=== PATIENT | female | born 1945 | race Caucasian/White ===

== ENCOUNTER 2020-06-09 13:47 | Inpatient (IN) ==
--- NOTE | 2020-06-09 14:32 | History & Physical Bridge Note ---
Date of Service June 09, 2020 History & Physical Bridge Note I have examined the patient, reviewed the History & Physical and in the interval since the performance of the History & Physical I have noted the following changes of clinical significance: no changes noted
--- NOTE | 2020-06-09 14:33 | Pre Anesthesia Assessment ---
Date of Service June 09, 2020 Pre Sedation Assessment Vital Signs Temp Pulse Resp BP Pulse Ox 06/09/20 13:59 36.8 C 88 18 203/85 H 98 Cardiovascular + regular rhythm Respiratory normal respiratory effort, lungs clear to auscultation Pre-Sedation Airway Assessment Smoking Status: Never smoker Hx Sleep Apnea: No Short, Thick Neck: No Thyromental Distance: > or= 3.5 Finger Breadths Oral Cavity: + WNL Mallampati Class: I ASA: ASA1 NPO Status Date of Last Intake of Fluids: 06/08/20 Date of Last Intake of Solid Food: 06/08/20 Procedure Planning Contraindications for Sedation: none Current Medications Reviewed: Yes Notes The planned sedation has been discussed with the patient. Informed Consent was obtained. I have identified the patient, determined the appropriateness of sedation and have assessed the patient immediately prior to the procedure. All medicine(s) and interventions are by my order.
[2020-06-09] MEDS ORDERED: LIDOCAINE HCL 1% 20 ML VIAL ONE (14:34)
[2020-06-09] MEDS ORDERED: BACITRACIN INJ 50,000 UNIT VIAL ONE (14:34)
[2020-06-09] MEDS ORDERED: BUPIVACAINE 0.25% 30 ML VIAL ONE (14:34)
[2020-06-09] MEDS ORDERED: fentaNYL citrate 100 MCG/2 ML VIAL ONE ×2 (14:35→16:00)
[2020-06-09] MEDS ORDERED: CEFAZOLIN 250 MG/ML 1 GM VIAL ONE (14:35)
[2020-06-09] MEDS ORDERED: MIDAZOLAM HCL 5 MG/ML 1 ML VIAL ONE (14:35)
--- NOTE | 2020-06-09 16:56 | Post Anesthesia Assessment ---
Date of Service June 09, 2020 Post Sedation Assessment Vital Signs Temp Pulse Resp BP Pulse Ox 06/09/20 13:59 36.8 C 88 18 203/85 H 98 Recovery Score Activity: Moves 4 extremities Respiration: Deep Breath/Cough Circulation: +/-20% PreAnes Value Consciousness: Fully Awake Oxygen Saturation: > 92% On Room Air Discharge Sedation Level of Care: Fast Track Phase II Post Sedation Plan On clinical assessment, the patient appears to have tolerated the sedation without complications. Patient is recovering as anticipated. Patient will continue to be monitored by nursing and may be discharged when sedation discharge criteria are met per below protocol. Upon Completions of procedure up to 15 minutes continue every 5 minute vital signs and the P.A.R. score; then discharge to a Phase I or Fast Track to Phase I I per the following guidelines: * Discharge Patient to appropriate Phase II area if PAR is 8 or greater or return to pre- procedure baseline. The post - procedure orders will be as directed. * If PAR score is less than 8 or not return to pre-procedure baseline then patient will follow Phase I monitoring till PAR is reached for Phase II. The Phase I may be done in procedure room or may call to secure a Phase I area. * If naloxone or flumazenil are used for reversal, hold in Phase I for continued monitoring from when last reversal dose was given for a minimum of 60 minutes or longer pending the nurse and/or physician discretion of patient condition before discharge to Phase II. Please call the Sedation Physician to re-evaluate and complete post-note for discharge to Phase II area. Do NOT discharge from procedure sedation or Phase 1 until post- sedation evaluation note is complete by procedure /sedation MD Sedation Discharge Instructions to be given to the patient at discharge to home.
[2020-06-09] MEDS ORDERED: NURSING DECISION MEDICATION ONE (16:57)
--- NOTE | 2020-06-09 16:57 | Operative Report ---
Post Operative Report Pre & Post Diagnosis tbs Operation Date: 06/09/20 15:00 <No data on this case meets the specified criteria> I identified the patient and participated in the time-out.: Yes Procedure Operation Date: 06/09/20 15:00 Actual Procedures s Bundle of his Recording - Nimco Diamond DO p Pacer with A/V Leads (Dual) - Nimco Diamond DO s Venogram, Unilateral - Nimco Diamond DO Surgeon Nimco Diamond, Electrical Estimator none Estimated Blood Loss 20 Findings Consistent with Post-Op Diagnosis Specimens none Description of Procedure see official report I attest to the content of the Intraoperative Record and any orders documented therein. Any exceptions are noted below.
[2020-06-09] MEDS ORDERED: OFLOXACIN OPR SCH (17:00)
--- NOTE | 2020-06-09 17:06 | Discharge Summary ---
Date of Service June 10, 2020 Admission HPI Per Admitting Provider pt admitted for ppm due TBS Admission Exam Per Admitting Provider aaox3, NAD NC/AT, EOMI Supple No JVD Nrl S1/S2, No murmur CTA b/l no w/r/r soft nt/nd no LE edema b/l skin intact no focal deficits Principal Diagnosis TBS s/p ppm Discharge Exam aaox3, NAD NC/AT, EOMI Supple No JVD Nrl S1/S2, No murmur CTA b/l no w/r/r soft nt/nd no LE edema b/l skin intact no focal deficits left pectoral incision intact, no hematoma mild ecchymosis Discharge Data Allergies Allergy/AdvReac Type Severity Reaction Status Date / Time acetaminophen Allergy Unknown WEAKNESS Verified 06/09/20 14:08 Vjygqat-Ojw-Tam Reductase Allergy Unknown MUSCLE Verified 06/09/20 14:08 Inhibitor ACHES terfenadine AdvReac Unknown HEART Verified 06/09/20 14:08 PALPITATIONS risedronate sodium AdvReac Muscle Pain Verified 06/09/20 14:08 Procedures Performed Operation Date: 06/09/20 15:00 Actual Procedures s Bundle of his Recording - Nimco Diamond DO p Pacer with A/V Leads (Dual) - Nimco Diamond DO s Venogram, Unilateral - Nimco Diamond DO Ordered Studies ECG: SR CXR: no PTX; leads in position pacemaker interrogation:Normal function and stable lead testing since implant 06/09/20 07:15 EP Lab Images for PACS ONCE Hospital Course (1) Tachy-linwood syndrome: Total Time Total Time Spent Total Time Spent (In Minutes): 35 Total Time Includes: Examination of the Patient, Discharge Planning, Medication Reconciliation and Other Discharge Plan Discharge Items Patient Disposition: Home - Self-Care Reason For Visit: Syncope; Sinus Bradycardia Discharge Diagnosis: TBS s/p ppm Condition on Discharge: Good Activity: As commented below Activity Comment: do not lift the left elbow over the left shoulder for 1 month Lifting: No more than 10 pounds Lifting Comment: do not lift more than 10 pounds with the left arm for 2 weeks Bathing: Keep incision dry Bathing Comment: keep dressing on and dry until wound check next week Sexual Activity: After two weeks Non-emergency contact: Manager Of Business Operations Call non-emergency contact if: you have any medication questions Follow-up/Referrals: Constantin Sánchez PA-C [Primary Care Provider] - Diet: Heart Healthy Addtl Attending Provider Instructions: Device and wound check as scheduled next week in [place] cardiology Try to wear the surgical bra or sports bra for a few weeks to help with the healing process Pending Studies at Discharge: No Stand-Alone Forms: My [facility] Medications and DC Order Prescriptions: New metoprolol succinate 50 mg Tablet Extended Release 24 Hr 50 mg PO QAM 30 Days Qty: 30 RF: 0 Continued ASCORBIC ACID (VITAMIN C) 1,000 MG tablet 1 tab PO QAM Qty: 0 RF: 0 ASPIRIN (ASPIRIN CHEWABLE) 81 MG CHEWABLE TAB 81 mg PO QAM Qty: 0 RF: 0 ATORVASTATIN (LIPITOR) 40 MG tablet 40 mg PO QPM Qty: 0 RF: 0 B-COMPLEX VITAMINS (VITAMIN B COMPLEX) 1 TAB tablet 1 tab PO QAM Qty: 0 RF: 0 BIOTIN 1 MG capsule 1 tab PO BID Qty: 0 RF: 0 [id number] (CALCIUM/MAGNESIUM/ZINC) 1 TAB tablet 1 tab PO QAM Qty: 0 RF: 0 CHOLECALCIFEROL (VITAMIN D3) 1,000 UNIT tablet 1 tab PO QAM 90 Days Qty: 90 RF: 3 COENZYME Q10 (UBIDECARENONE) (COQ-10) 100 MG capsule 1 cap PO HS Qty: 0 RF: 0 CYANOCOBALAMIN (VITAMIN B12) 1,000 MCG tablet 1 tab PO QAM Qty: 0 RF: 0 Calcium/Vitamin D (Os-Feliciano 500 Plus D) tablet 1 tab PO QAM Qty: 0 RF: 0 Clopidogrel (Plavix) 75 MG tablet 75 mg PO QAM Qty: 0 RF: 0 FERROUS SULFATE 325 MG tablet 1 tab PO QAM Qty: 0 RF: 0 Insulin Glargine (Lantus) VIAL 40 unit SC QAM Qty: 0 RF: 0 LUTEIN-ZEAXANTHIN (LUTEIN) 1 CAP capsule 1 cap PO QAM Qty: 0 RF: 0 METFORMIN HCL (GLUCOPHAGE EXT REL) 1,000 MG tablet 1,000 mg PO BID Qty: 0 RF: 0 MULTIPLE VITAMINS W/ MINERALS (CENTRUM SILVER ADULT 50+) 1 TAB tablet 1 tab PO QAM Qty: 0 RF: 0 NATEGLINIDE 120 MG tablet 1 tab PO TID Qty: 0 RF: 0 OMEGA-3 FATTY ACIDS (OMEGA 3) 1 CAP capsule 1 cap PO QAM Qty: 0 RF: 0 Tocopheryl Acet,Dl-Alpha (Vitamin E) 400 INTER.UNIT capsule 400 inter.unit PO QAM Qty: 0 RF: 0 Prednisolone Acetate 1% Oph (Pred Forte 1% Oph) suspension 1 drp OPR Q OTHER DAY Qty: 0 RF: 0 OFLOXACIN (OPH) (OCUFLOX OPH SOLN) 0.3 % MARC 1 drp OPR QID 7 Days Qty: 5 RF: 0 Changed LISINOPRIL (PRINIVIL) 20 MG tablet 20 mg PO HS Qty: 0 RF: 0 Discharge Orders: Discharge Order (Routine); Ordered 06/10/20 Ordered By: Nimco Diamond Admission Data Admit Date/Time: 06/09/20 15:12 Attending Provider: Nimco Diamond Admit Provider: Nimco Diamond Primary Care Provider: Constantin Sánchez Other Providers: Lei Gray ; Maninder Orta ; Binh Nickerson ; Daniel Jacobs ; Alfred Sosa ; Cullen Kam ; Amirah Guevara ; Darek Miles
[2020-06-09] MEDS ORDERED: GLUCAGON FOR INJ 1 MG VIAL IM PRN (17:15)
[2020-06-09] MEDS ORDERED: GLUCOSE 40% GEL 15 GM TUBE PO PRN (17:15)
[2020-06-09] MEDS ORDERED: GLUCOSE 10 TABS/TUBE PO PRN (17:15)
[2020-06-09] MEDS ORDERED: DEXTROSE 50% 50 ML SYRINGE IV PRN (17:15)
[2020-06-09] MEDS ORDERED: CARBOHYDRATES FOR HYPOGLYCEMIA PO PRN (17:15)
[2020-06-09] MEDS ORDERED: PHARMACY GLYCEMIC MGMT CONSULT PRN (17:21)
[2020-06-09] MEDS ORDERED: METOPROLOL SUCC 50MG EXT REL TAB PO ONE (17:45)
[2020-06-09] MEDS: INSULIN ASPART 100 UNITS/ML 3 ML PEN SC SCH ×2 (17:59→22:03)
[2020-06-09] MEDS ORDERED: METFORMIN HCL ER 500 MG TABCR PO SCH (21:00)
[2020-06-09] MEDS ORDERED: NON-FORMULARY MEDICATION (Biotin 1 TAB) PO SCH (21:00)
[2020-06-09] MEDS ORDERED: NON-FORMULARY MEDICATION (Coenzyme Q10 (Ubidecarenone) (Coq-10) 1 CAP) PO SCH (21:00)
[2020-06-09] MEDS ORDERED: NATEGLINIDE PO SCH (21:00)
[2020-06-09] MEDS: lisinopriL 20 MG TAB PO SCH (22:02)
[2020-06-09] MEDS: ATORVASTATIN 40 MG TAB PO SCH (22:02)
[2020-06-09] MEDS: ACETAMINOPHEN 325 MG TAB PO PRN (22:29)
[2020-06-10] MEDS: prednisoLONE acetate 1% OP SUSP 5 ML BTL OP SCH (08:04)
[2020-06-10] MEDS: CEROVITE ADV FORMULA TAB PO SCH (08:05)
[2020-06-10] MEDS: CHOLECALCIFEROL 1,000 UNITS 25 MCG TAB PO SCH (08:05)
[2020-06-10] MEDS: CALCIUM 600MG + VIT D 400 IU TAB PO SCH (08:05)
[2020-06-10] MEDS: OMEGA-3 (PURIFIED FISH OIL) 1 GM CAP PO SCH (08:05)
[2020-06-10] MEDS: CLOPIDOGREL BISULFATE 75 MG TAB PO SCH (08:05)
[2020-06-10] MEDS: TOCOPHERYL, DL-ALPHA 400 UNITS CAP PO SCH (08:05)
[2020-06-10] MEDS: VITAMIN B COMPLEX TAB PO SCH (08:05)
[2020-06-10] MEDS: ASCORBIC ACID 500 MG TAB PO SCH (08:05)
[2020-06-10] MEDS: ASPIRIN 81 MG ECTAB PO SCH (08:05)
--- NOTE | 2020-06-10 08:05 | XRay Report ---
XR chest 2V PA/lateral HISTORY: 74 years-old Female post left bundle ppm left subclavian pacer COMPARISON: None TECHNIQUE: PA and lateral views of the chest FINDINGS: Status post placement of a left subclavian dual lead pacer. Left apical pneumothorax with pleural sep aration of 3.8 cm at the apex. Cardiac silhouette is normal in size. Calcified plaque of the thoracic aorta. Mild right hemidiaphragmatic elevation. Mild left lung atelectasis. Degenerative changes of t he shoulders and spine. IMPRESSION: Small to moderate left apical pneumothorax status post placement of a dual lead left subc lavian pacer. ACT 112: Negative or not required by law. The above report was generated using voice recognition software. It may contain grammatical, syntax o r spelling errors. Electronically signed by: Rhett Sorto M.D. 06/10/2020 8:03 AM
[2020-06-10] MEDS: FERROUS SULFATE 325 MG TAB PO SCH (08:06)
[2020-06-10] MEDS: INSULIN ASPART 100 UNITS/ML 3 ML PEN SC SCH ×4 (08:06→22:09)
[2020-06-10] MEDS: METOPROLOL SUCC 50MG EXT REL TAB PO SCH (08:06)
[2020-06-10] MEDS: CYANOCOBALAMIN 500 MCG TABLET (VITAMIN B-12) PO SCH (08:06)
[2020-06-10] MEDS: lisinopriL 20 MG TAB PO SCH ×2 (08:50→22:08)
[2020-06-10] MEDS ORDERED: INSULIN GLARGINE SOLOSTAR 100 UNITS/ML 3 ML PEN SC SCH (09:00)
[2020-06-10] MEDS ORDERED: VITAMIN D PO SCH (09:00)
[2020-06-10] MEDS ORDERED: CALCIUM PO SCH (09:00)
[2020-06-10] MEDS ORDERED: NON-FORMULARY MEDICATION (Lutein-Zeaxanthin (Lutein) 1 CAP) PO SCH (09:00)
[2020-06-10] MEDS: ACETAMINOPHEN 325 MG TAB PO PRN (09:01)
--- NOTE | 2020-06-10 10:31 | Pulmonary Consultation ---
Date of Consultation June 10, 2020 Assessment & Plan (1) Pneumothorax, iatrogenic: Impression: 74-year-old female with left-sided pneumothorax status post pacemaker implantation. She is hemodynamically stable and doing well. Recommendations: 1. We will plan on trying to aspirate the pneumothorax with placement of a small 8 Tamazight chest tube. Will check chest x-ray after the catheter is placed to ensure reexpansion of the lung. If she does well, will clamp the tube and check chest x-ray 4 hours after clamping the tube. If no evidence of pneumothorax, the tube can likely be withdrawn and the patient dismissed from the hospital. 2. Recommend keeping the patient on oxygen to try and denitrogenate the pneumothorax and assist with reabsorption of the pleural air. 4 to 6 L nasal cannula should be adequate. 3. 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 She states she has a trip scheduled to fly to [place] in about 4 weeks. That would be the lower limits of acceptable given her pneumothorax. The above recommendations and plan were explained to the patient in detail. She expressed understanding and is in agreement with the plan as outlined History of Present Illness Attending Physician: Nimco Diamond, DO History of Present Illness Asked by cardiology to assist in management this patient with iatrogenic pneumothorax status post pacemaker placement. History is obtained from discussion with the patient as well as review the electronic medical record. Patient is a 74-year-old female who was admitted for elective placement of pacemaker due to tachybradycardia syndrome. She underwent the procedure and was scheduled to be discharged today. A follow-up chest x-ray was performed which revealed a small to moderate sized left-sided pleural effusion which prompted pulmonary consultation. The patient is asymptomatic with the exception of some minor left-sided chest discomfort. She is not coughing or experiencing any shortness of breath. Her oxygen saturations and vital signs remained stable. She is on Plavix and aspirin which she took today but no other anticoagulants. Allergies Allergy/AdvReac Type Severity Reaction Status Date / Time acetaminophen Allergy Unknown WEAKNESS Verified 06/09/20 14:08 Rfzbeeh-Gfb-Xat Reductase Allergy Unknown MUSCLE Verified 06/09/20 14:08 Inhibitor ACHES terfenadine AdvReac Unknown HEART Verified 06/09/20 14:08 PALPITATIONS risedronate sodium AdvReac Muscle Pain Verified 06/09/20 14:08 Home Medications Home Medications Medication Instructions Recorded Confirmed Type ASCORBIC ACID (VITAMIN C) 1 tab PO QAM #0 01/17/16 06/09/20 History ASPIRIN (ASPIRIN CHEWABLE) 81 mg PO QAM #0 01/17/16 06/09/20 History ATORVASTATIN (LIPITOR) 40 mg PO QPM #0 tab 01/17/16 06/09/20 History B-COMPLEX VITAMINS (VITAMIN B 1 tab PO QAM #0 01/17/16 06/09/20 History COMPLEX) BIOTIN 1 tab PO BID #0 01/17/16 06/09/20 History DYZTYPI-[id number] 1 tab PO QAM #0 01/17/16 06/09/20 History (CALCIUM/MAGNESIUM/ZINC) CHOLECALCIFEROL (VITAMIN D3) 1 tab PO QAM 90 Days #90 tab 01/17/16 06/09/20 History COENZYME Q10 (UBIDECARENONE) 1 cap PO HS #0 01/17/16 06/09/20 History (COQ-10) CYANOCOBALAMIN (VITAMIN B12) 1 tab PO QAM #0 01/17/16 06/09/20 History Calcium/Vitamin D (Os-Feliciano 500 Plus 1 tab PO QAM #0 tab 01/17/16 06/09/20 History D) Clopidogrel (Plavix) 75 mg PO QAM #0 tab 01/17/16 06/09/20 History FERROUS SULFATE 1 tab PO QAM #0 01/17/16 06/09/20 History Insulin Glargine (Lantus) 40 unit SC QAM #0 vial 01/17/16 06/09/20 History LISINOPRIL (PRINIVIL) 20 mg PO BID #0 tab 01/17/16 06/09/20 History LUTEIN-ZEAXANTHIN (LUTEIN) 1 cap PO QAM #0 01/17/16 06/09/20 History METFORMIN HCL (GLUCOPHAGE EXT REL) 1,000 mg PO BID #0 tab 01/17/16 06/09/20 History MULTIPLE VITAMINS W/ MINERALS 1 tab PO QAM #0 01/17/16 06/09/20 History (CENTRUM SILVER ADULT 50+) NATEGLINIDE 1 tab PO TID #0 01/17/16 06/09/20 History OMEGA-3 FATTY ACIDS (OMEGA 3) 1 cap PO QAM #0 01/17/16 06/09/20 History Tocopheryl Acet,Dl-Alpha (Vitamin 400 inter.unit PO QAM #0 cap 01/17/16 06/09/20 History E) OFLOXACIN (OPH) (OCUFLOX OPH SOLN) 1 drp OPR QID 7 Days #5 ml 02/02/16 06/09/20 History Prednisolone Acetate 1% Oph (Pred 1 drp OPR Q OTHER DAY #0 02/02/16 06/09/20 History Forte 1% Oph) metoprolol succinate 50 mg PO QAM 30 Days #30 tab 06/09/20 Rx Patient History Social History Smoking Status: Never smoker Hx Alcohol Use: No Hx Substance Use: No Preferred Language: Hong Konger Beliefs That Will Affect Care: None Current Living Situation: Alone Other Information That Helps Us Care for You: No Feels Safe at Home: Yes Safety Concerns: Feels Safe At This Time Review of Systems Review of Systems: All systems reviewed & are unremarkable except as noted in HPI & below Physical Exam Constitutional: WD/WN, vitals as above Neck: trachea midline, no thyromegaly Respiratory: normal respiratory effort, lungs clear to auscultation Cardiovascular: RRR, no murmur, no edema Chest (Breasts): Additional Comments: Pacemaker site dressed on the left chest. No crepitus or tracheal deviation Gastrointestinal (Abdomen): normal bowel sounds, soft, nontender, no hepatosplenomegaly Musculoskeletal: Extremities: extremities normal to inspection Skin: no rashes, warm and dry Neurologic: Nonfocal exam Lymphatic: no cervical lymphadenopathy Results & Data Results & Data ([facility]) Vital Signs (Past 12 Hours) Vital Signs Temp Pulse Pulse Resp BP Pulse Ox 06/10/20 08:00 82 06/10/20 07:17 36.9 C 78 18 130/72 94 06/10/20 03:45 37 C 77 16 146/69 H 98 06/09/20 23:22 37.1 C 81 16 134/66 97 Diagnostic Findings Chest x-ray from today was independently reviewed. Pacemaker is noted in the left chest with leads in good position. Apical and lateral pneumothorax, mild to moderate in size. No midline shift PG Care Time/CCT Total # of Minutes Spent Total Time Spent with Patient: Total time spent is greater than 50% in coordination of care (as documented) at patient's floor/unit and/or counseling patient: Coding Level of Care Code 77549 Initial Inpt Care Lvl 3 Diagnoses Pneumothorax, iatrogenic J95.811
--- NOTE | 2020-06-10 10:33 | Procedure Note ---
Procedure Note Date of Service June 10, 2020 Procedure: 8 Pashto pneumothorax catheter placement Indication: Pneumothorax on left status post pacemaker implantation Systems Administrator: Dr. Sosa Anesthesia: 10 mL's 1% lidocaine without epinephrine Estimated blood loss: Less than 3 mL's Consent: Risks and benefits were explained to the patient. Consent was obtained and verified and a timeout was performed. Procedure: The patient was placed in the left side up lateral decubitus position. The arm was placed slightly across the chest taking care to not extend the shoulder given her recent pacemaker implantation. The posterior axillary line lateral to the nipple was prepped and draped in normal sterile fashion. The skin and subcutaneous tissues were anesthetized with 1% lidocaine. An 11 blade scalpel was used to make a small skin neck. The 8 Pashto pneumothorax catheter was then advanced until the rib could be palpated through the needle. The catheter was advanced over the rib and into the pleural space where air was easily aspirated. The catheter was advanced into the pleural space and the needle withdrawn. The catheter apparatus was then attached to a suction system. There was significant bubbling observed for the first minute or so then it resolved even with cough although there were a few rare intermittent bubbles identified on the [place] system. The catheter was sutured in place. Sterile Tegaderm was applied. Post procedure chest x-ray is pending. Coding CPT Codes Pulmonary/Thoracic - Pulmonary and Thoracic: 64337 Pleural drainage w/o imaging ([id number]) [facility] Procedure Codes (Charges) Pulmonary/Thoracic Procedure 1: Pulmonary and Thoracic: 02416 Pleural drainage w/o imaging
--- NOTE | 2020-06-10 10:35 | Pharmacy Report ---
Glycemic Control Consultation - Date of Service June 10, 2020 - Scope Scope: Glycemic Pharmacist consulted for glycemic control and to write orders per [facility] inpatient glycemic control protocol. - Objective Weight: 66.5 kg Accuchecks BSG (last 24hrs): 06/09/20 06/09/20 06/10/20 17:27 21:45 07:43 POC Glucose 149 H 189 H 211 H - Recent Pertinent Medications Outpatient Anti-diabetic Regimen: * Lantus 40 units SQ qAM + Nateglinide 120 mg PO TIDM * A1c = unknown The patient is currently receiving: * Basal insulin: Lantus 30 units x 1 * Correctional Insulin: Novolog Correction per scale ACHS Goal Range: Low 110 mg/dL - High 140 mg/dL Correction Factor: 30 mg/dL/unit * Prandial insulin: Per carb ratio of 1 unit per 10 grams CHO consumed * Oral Agents: on hold Risk Factors for Insulin Resistance: * Diet: * Heart Healthy - Assessment & Plan Assessment & Plan: ASSESSMENT: * 74 yo F admitted for observation s/p pacemaker placement * Post-op BSGs yesterday trended up: 149-189 mg/dL * Received 3 units of bolus insulin yesterday * Fasting BSG this AM was 211 mg/dL - uncontrolled * Likely due to basal deficiency * Received 30 units of Lantus this AM + 7 units of Novolog * Will tighten CF/CR with lunch today and continue current basal scale PLAN FOR INPATIENT GLYCEMIC CONTROL: * Holding outpatient oral diabetes medications * Basal insulin - no change * Lantus 20-30 units SQ qAM per BSG (see eMAR for more details) * Bolus insulin - tightened CF/CR * NovoLog per scale ACHS or Q6hrs while NPO * Goal Range: Low 110 mg/dL - High 140 mg/dL * Correction Factor: 25 mg/dL/unit * Nutritional / Prandial insulin per carb ratio of 1 unit per 8 grams CHO consumed * Please note that the plan above was derived based on current level of insulin resistance and hospital stress. These recommendations are appropriate for inpatient admission only. Plan of care upon discharge will need to be reassessed to avoid potential outpatient hypo/hyperglycemia. Thank you.
--- NOTE | 2020-06-10 11:00 | XRay Report ---
XR chest 1V portable HISTORY: S/P left chest tube for pneumothorax COMPARISON: Chest 06/10/2020. FINDINGS: Interval placement of left-sided chest tube. The tubing is obscured by the overlying left-s ided pacemaker. There is a tiny left apical pneumothorax remaining with a pleural gap of 2 mm. The ri ght lung is clear. The heart is mildly enlarged. IMPRESSION: Interval placement of a left-sided chest tube. The tubing is obscured by the overlying pacemaker. How ever, there has been significant decrease in the size in the tiny left apical pneumothorax ACT 112: Negative or not required by law. Electronically signed by: Dax Negron M.D. 06/10/2020 10:59 AM
[2020-06-10] MEDS ORDERED: INSULIN GLARGINE SOLOSTAR 100 UNITS/ML 3 ML PEN SC ONE (11:45)
--- NOTE | 2020-06-10 14:31 | XRay Report ---
XR chest 1V portable CLINICAL HISTORY: Left pneumothorax COMPARISON STUDY: 06/10/2020 FINDINGS: The heart is mildly enlarged. There is a left subclavian dual-chamber central venous pacema ker. There is a tiny left apical pneumothorax with pleural separation of 4 mm. This is minimally larg er than on the prior study. Linear opacities at both lung bases felt to be atelectatic. There is no f ailure. There are no pleural effusions.[There is a left-sided chest tube which is partially obscured by the patient's pacemaker generator. IMPRESSION: Minimal increase the size of a tiny left apical pneumothorax which has a pleural separati on a 4 mm. ACT 112: Negative or not required by law. Electronically signed by: Giovanni Rich M.D. 06/10/2020 2:30 PM
[2020-06-10] MEDS: OXYCODONE/ACETAMINOPHEN 5mg/325mg TAB PO PRN ×2 (14:39→22:15)
--- NOTE | 2020-06-10 15:51 | XRay Report ---
XR chest inspiration/expiration (2 views) CLINICAL HISTORY: Left pneumothorax COMPARISON STUDY: 06/10/2020 FINDINGS: The cardiac and mediastinal contours remain stable. There is a left-sided dual-chamber cent ral venous pacemaker. There are subsegmental atelectatic changes at both lung bases. There is a left- sided chest tube which is partially obscured due to the patient's pacemaker generator. There is sligh t further increase in the size of a left pneumothorax with pleural separation of 8 mm inspiration, an d 11 mm in expiration.. IMPRESSION: Slight interval increase in the size of the left apical pneumothorax with pleural separat ion of 8 mm in inspiration ACT 112: Negative or not required by law. Electronically signed by: Giovanni Rich M.D. 06/10/2020 3:50 PM
--- NOTE | 2020-06-10 17:22 | Cardiology Progress Note ---
Date of Service June 10, 2020 Assessment & Plan (1) Tachy-linwood syndrome: (2) Pneumothorax, iatrogenic: Admission and Anticipated Discharge Date Admission Date: June 09, 2020 Subjective Pt seen earlier this morning; had no SOB or complaints. Her Post op CXR came back with a PTX so pulmonary was consulted and placed a pigtail catheter in. I then saw pt this evening and she is still feeling fine. Review of Systems Review of Systems: All systems reviewed & are unremarkable except as noted in HPI & below Physical Exam Physical Exam: aaox3, NAD NC/AT, EOMI Supple No JVD Nrl S1/S2, No murmur diminished breath sounds left upper lobe soft nt/nd no LE edema b/l skin intact no focal deficits left pectoral incision intact, no hematoma mild ecchymosis Results & Data ([facility]) Vital Signs (Past 12 Hours) Vital Signs Temp Pulse Pulse Resp BP Pulse Ox 06/10/20 16:00 64 06/10/20 15:52 36.6 C 64 20 157/78 H 99 06/10/20 11:54 36.6 C 76 18 177/73 H 100 06/10/20 08:00 82 06/10/20 07:17 36.9 C 78 18 130/72 94
--- NOTE | 2020-06-10 20:03 | Electrocardiogram Report ---
Test Reason : Blood Pressure : / mmHG Vent. Rate : 076 BPM Atrial Rate : 076 BPM P-R Int : 202 ms QRS Dur : 146 ms QT Int : 444 ms P-R-T Axes : 085 060 020 degrees QTc Int : 499 ms Normal sinus rhythm Non-specific intra-ventricular conduction block Lateral infarct , age undetermined Abnormal ECG No previous ECGs available Confirmed by Al Santana ([id number]) on 06/10/2020 8:03:27 PM Referred By: Nimco Diamond Confirmed By:Al Santana
[2020-06-10] MEDS: ATORVASTATIN 40 MG TAB PO SCH (22:09)
[2020-06-11] MEDS: OXYCODONE/ACETAMINOPHEN 5mg/325mg TAB PO PRN ×3 (04:44→20:59)
--- NOTE | 2020-06-11 07:18 | Pulmonology Progress Note ---
Date of Service June 11, 2020 Assessment & Plan (1) Pneumothorax, iatrogenic: Impression: 74-year-old female with left-sided pneumothorax status post pacemaker implantation. She is hemodynamically stable and doing well. --Iatrogenic pneumothorax Status post permanent pacemaker placement, patient is a non-smoker Patient has left-sided chest tube placed 06/10/2020 There is no air leak appreciated but there is decreased air entry on the left side I will repeat a chest x-ray stat to see how the pneumothorax looks like. Patient is hemodynamically stable. Continue with oxygen supplementation. Please note the above document was generated using voice recognition software. It may contain grammatical, syntax or spelling errors. Admission and Anticipated Discharge Date Admission Date: June 09, 2020 Subjective Patient seen and examined at bedside. No acute distress, noted with symptoms overnight. Patient denies any chest pain, denies any shortness of breath. Denies any chest tightness. Was having breakfast at the time of examination. No cough. No headache, no dizziness. Review of Systems Review of Systems: All systems reviewed & are unremarkable except as noted in Subjective Physical Exam Physical Exam: Constitutional: No acute distress HEENT: EOMI, PERRLA Respiratory system: Decreased air entry on the left side, positive crackles bilateral lower lobes, no wheeze, no rhonchi CVS: S1-S2 positive, no murmurs or gallops, positive left-sided PPM Abdomen: Soft, nontender, nondistended, positive bowel sounds x4 Extremities: +2 pulses bilaterally radialis, no cyanosis, no edema Neuro: Awake alert oriented x3 Psych: Normal mood and affect G/U: No Han Left-sided chest tube catheter present. No air leak appreciated. Skin: no rashes, warm and dry Lymphatic: no cervical or axillary lymphadenopathy Results & Data Results & Data ([facility]) Vital Signs (Past 12 Hours) Vital Signs Temp Pulse Pulse Resp BP Pulse Ox 06/11/20 07:09 67 06/11/20 04:00 36.6 C 73 20 152/75 H 100 06/10/20 23:54 36.4 C L 67 18 152/70 H 100 06/10/20 20:00 70 PG Care Time/CCT Total # of Minutes Spent Total Time Spent with Patient: Total time spent is greater than 50% in coordination of care (as documented) at patient's floor/unit and/or counseling patient: Coding Level of Care Code 97137 Subseq Hosp Care Lvl 3 Diagnoses Pneumothorax, iatrogenic J95.811
[2020-06-11] MEDS: CHOLECALCIFEROL 1,000 UNITS 25 MCG TAB PO SCH (07:59)
[2020-06-11] MEDS: CALCIUM 600MG + VIT D 400 IU TAB PO SCH (07:59)
[2020-06-11] MEDS: CYANOCOBALAMIN 500 MCG TABLET (VITAMIN B-12) PO SCH (07:59)
[2020-06-11] MEDS: lisinopriL 20 MG TAB PO SCH ×2 (07:59→21:00)
[2020-06-11] MEDS: OMEGA-3 (PURIFIED FISH OIL) 1 GM CAP PO SCH (07:59)
[2020-06-11] MEDS: FERROUS SULFATE 325 MG TAB PO SCH (07:59)
[2020-06-11] MEDS: TOCOPHERYL, DL-ALPHA 400 UNITS CAP PO SCH (07:59)
[2020-06-11] MEDS: CLOPIDOGREL BISULFATE 75 MG TAB PO SCH (08:00)
[2020-06-11] MEDS: CEROVITE ADV FORMULA TAB PO SCH (08:00)
[2020-06-11] MEDS: VITAMIN B COMPLEX TAB PO SCH (08:00)
[2020-06-11] MEDS: ASCORBIC ACID 500 MG TAB PO SCH (08:00)
[2020-06-11] MEDS: METOPROLOL SUCC 50MG EXT REL TAB PO SCH (08:01)
--- NOTE | 2020-06-11 08:06 | XRay Report ---
XR chest 1V portable HISTORY: 74 years-old Female f/u Pneumo follow-up study in a patient with left-sided pneumothorax COMPARISON: Chest radiographs 06/10/2020 TECHNIQUE: Portable AP view of the chest FINDINGS: Cardiomediastinal and hilar silhouettes are unchanged. Left subclavian pacer. Left-sided chest tube i s partially obscured by the pacemaker device. Small to moderate left pneumothorax has increased in si ze in the interval, now with pleural separation at the apex measuring up to 2.4 cm. A basilar pneumot horax component is now also appreciated with rounded progressed left lung base atelectasis. Unchanged mild right hemidiaphragmatic elevation with right lung base atelectasis. Degenerative changes of the shoulders and spine. Left shoulder rotator cuff calcific tendinosis. IMPRESSION: Increased size of the small to moderate left pneumothorax with left-sided pleural cathete r. ACT 112: Negative or not required by law. The above report was generated using voice recognition software. It may contain grammatical, syntax o r spelling errors. Electronically signed by: Rhett Sorto M.D. 06/11/2020 8:05 AM
[2020-06-11] MEDS: INSULIN ASPART 100 UNITS/ML 3 ML PEN SC SCH ×4 (08:07→21:01)
[2020-06-11 08:21] LABS: Estimated Average Glucose 183 mg/dl
--- NOTE | 2020-06-11 08:50 | Pharmacy Report ---
Pharmacy Glycemic Short Note 2 - Date of Service June 11, 2020 - Glycemic Short BSG Results (Last 24 hours): OUTPATIENT ANTIDIABETIC REGIMEN: * Lantus 40 units SQ qAM + Nateglinide 120 mg PO TIDM + Metformin 1000 mg PO BIDM * A1c = 8.0% (06/11/2020) ASSESSMENT: 06/11: * BSGs uncontrolled yesterday: [phone] mg/dL * Received a total of 58 units of insulin yesterday: 40 basal + 18 bolus * Fasting BSG was 198 mg/dL this AM - uncontrolled * Will stress home dose and increased Lantus dose this morning * Tightened CF/CR this morning given post-prandial hyperglycemia last evening * Lunchtime BSG was 247 mg/dL 06/10: * 74 yo F admitted for observation s/p pacemaker placement * Post-op BSGs yesterday trended up: 149-189 mg/dL * Received 3 units of bolus insulin yesterday * Fasting BSG this AM was 211 mg/dL - uncontrolled * Likely due to basal deficiency * Received 30 units of Lantus this AM + 7 units of Novolog * Will tighten CF/CR with lunch today and continue current basal scale PLAN FOR INPATIENT GLYCEMIC CONTROL: * Hold outpatient oral diabetes medications * Basal insulin - increased * Lantus 45 units SQ qAM * Bolus insulin - tightened CF/CR * NovoLog per scale ACHS or Q6hrs while NPO * Goal Range: Low 110 mg/dL - High 140 mg/dL * Correction Factor: 15 mg/dL/unit * Nutritional / Prandial insulin per carb ratio of 1 unit per 5 grams CHO consumed PLAN FOR DISCHARGE: * HbA1c = 8.0% from 06/11/2020 * Goal A1c less than 8.0% based on age and comorbidities * If patient is not experiencing any hypoglycemia at home, would recommend increasing Lantus dose to 45 units SQ qAM. Close follow-up with outpatient provider is recommended. * Recommend patient self-management with: * Healthy Lifestyle (diet, exercise, etc.) * Disease self-management (SMBG) * Prevention of complications (BP, Lipid goals, Immunizations)
[2020-06-11] MEDS ORDERED: INSULIN GLARGINE SOLOSTAR 100 UNITS/ML 3 ML PEN SC SCH ×2 (09:00)
[2020-06-11] MEDS ORDERED: PHARMACY GLYCEMIC MGMT CONSULT STA (10:17)
--- NOTE | 2020-06-11 10:17 | Cardiology Progress Note ---
Date of Service June 11, 2020 Assessment & Plan (1) Pneumothorax, iatrogenic: (2) Pacemaker complications: (3) Tachy-linwood syndrome: (4) DM2 (diabetes mellitus, type 2): Continue outpatient cardiovascular medications including aspirin, atorvastatin, clopidogrel, lisinopril, metoprolol. Update labs including basic metabolic panel and CBC. SCDs ordered for DVT prophylaxis. Consult pharmacy regarding diabetes management. 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 Pacemaker implantation complicated by left-sided pneumothorax. Chest tube placed by pulmonary medicine yesterday, 06/10/2020. Patient carries a history of syncope, left bundle branch block, cerebrovascular accident, dyslipidemia, and diabetes. Currently resting comfortably. Notes left-sided discomfort related to pacemaker surgical site and chest tube. No palpitations or lightheadedness. Denies orthopnea or PND. No shortness of breath at rest. Chest x-ray demonstrates an increase in size of pneumothorax compared to yesterday. No air leak appreciated this morning. Chest tube flushed with saline by pulmonary medicine. Suction increased to -30 and patient placed on nonrebreather mask. Pulmonary medicine considering placement of a larger chest tube if there is no clinical improvement. Review of Systems Review of Systems: All systems reviewed & are unremarkable except as noted in HPI & below Physical Exam Constitutional: well developed and well nourished Respiratory: no tactile fremitus Auscultation: + diminished lung sounds (Left apex); no crackles, no rales, no rhonchi and no wheezes Cardiovascular: Rate/Rhythm: regular rate and regular rhythm Heart Sounds: normal S1 and normal S2; no murmur and no cardiac rub Vessels: radial pulses present; no JVD Extremities: no edema Gastrointestinal (Abdomen): Inspection/Auscultation: normal bowel sounds; + abdomen abnormal to inspection and abdomen not distended Percussion/Palpation: abdomen soft; abdomen nontender, no guarding and abdomen not rigid Musculoskeletal: no cyanosis or clubbing, extremities motor strength 5/5 Skin: no rashes, warm and dry Neurologic: CN's II-XI intact bilaterally and moves all extremities; no focal motor deficits Speech / Cognition: normal speech Motor/Sensory: no tremor Psychiatric: A+Ox3, euthymic affect Results & Data ([facility]) Vital Signs (Past 12 Hours) Vital Signs Temp Pulse Pulse Resp BP Pulse Ox 06/11/20 07:41 36.7 C 77 18 161/69 H 98 06/11/20 07:09 67 06/11/20 04:00 36.6 C 73 20 152/75 H 100 06/10/20 23:54 36.4 C L 67 18 152/70 H 100 (1) DM2 (diabetes mellitus, type 2) Diabetes mellitus complication status: without complication Diabetes mellitus oysterman insulin use: with oysterman use Qualified Code(s): E11.9 - Type 2 diabetes mellitus without complications; Z79.4 - long term care phlebotomist (current) use of insulin (2) Pacemaker complications Encounter type: initial encounter Qualified Code(s): T82.9XXA - Unspecified complication of cardiac and vascular prosthetic device, implant and graft, initial encounter
[2020-06-11] MEDS: ASPIRIN 81 MG ECTAB PO SCH (10:27)
[2020-06-11 10:43] LABS: Basophils # (auto) 0.01 K/uL (0-0.2); Basophils % (auto) 0.2 %; Eosinophils # (auto) 0.06 K/uL (0-0.5); Eosinophils % (auto) 1.3 %; Hematocrit (blood only) 41.3 % (37-47); Hemoglobin 13.5 g/dL (12.0-16.0); Lymphocytes # (auto) 1.07 K/uL (1.2-3.4); Lymphocytes % (auto) 22.6 %; Mean Corpuscular Hemoglobin 29.4 pg (25-34); Mean Corpuscular Hgb Conc 32.7 g/dL (32-36); Mean Platelet Volume 9.2 fL (7.4-10.4); Monocytes % (auto) 8.5 %; Neutrophils # (auto) 3.19 K/uL (1.4-6.5); Neutrophils % (auto) 67.4 %; Platelet Count 119 K/uL (130-400); RDW Coefficient of Variation 13.8 % (11.5-14.5); RDW Standard Deviation 45.5 fL (36.4-46.3); Red Blood Count 4.59 M/uL (4.2-5.4); White Blood Count 4.73 K/uL (4.8-10.8)
[2020-06-11 10:50] LABS: BUN Creatinine Ratio 16.3 (10-20); Calcium 8.4 mg/dl (8.5-10.1); Creatinine Clr Calc Pharmacy 73.9 ml/min; Est GFR (African American) 103.5; Est GFR (Non-African American) 89.3; Potassium 4.2 mmol/L (3.5-5.1)
--- NOTE | 2020-06-11 11:16 | XRay Report ---
XR chest 1V portable HISTORY: 74 years-old Female f/u pneumo follow-up study in a patient with left-sided pneumothorax COMPARISON: Chest radiograph of same day at 7:36 AM TECHNIQUE: Portable AP view of the chest FINDINGS: Cardiac mediastinal and hilar silhouettes are unchanged. Calcified plaque of the thoracic aorta. Left subclavian pacer. Right hemidiaphragmatic elevation with bibasilar atelectasis. No overt pulmonary e radu. Left-sided pleural drainage catheter is again partially obscured by the left pacer. Moderate le ft pneumothorax has again slightly increased in size, now with pleural separation at the apex of 3.5 cm, previously 2.4. The left basilar component of the pneumothorax is unchanged. IMPRESSION: Slightly increased size of the left pneumothorax. ACT 112: Negative or not required by law. The above report was generated using voice recognition software. It may contain grammatical, syntax o r spelling errors. Electronically signed by: Rhett Sorto M.D. 06/11/2020 11:15 AM
--- NOTE | 2020-06-11 12:33 | Procedure Note ---
Procedure Note Date of Service June 11, 2020 Procedure: Pigtail chest tube insertion Software Client Architect: Dr. Maninder Orta Indication: Worsening left-sided pneumothorax Consent: Signed by patient and verified with timeout prior to procedure Anesthesia: 1% lidocaine without epinephrine local Procedure: Consent was verified and timeout performed. Appropriate imaging studies were reviewed prior to the procedure. Patient was placed in a seated position See separate imaging. Appropriate site above the diaphragm for chest tube insertion was selected on midaxillary line on the left side of the chest. The skin was prepped and draped in normal sterile fashion. Lidocaine was used for local analgesia. Air was aspirated via the finder needle. A small skin james was made with the scalpel and the catheter over the needle apparatus was advanced over the rib into the pleural space. With the help of guidewire and Seldinger technique, 14 Welsh pigtail catheter was inserted and connected to Pleur-evac. +3 bubbling was appreciated which lasted for less than 30 seconds. No air leak appreciated after that The initial 8 Welsh chest tube was removed. It was found to be intact. Chest x-ray to follow The patient tolerated the procedure without obvious complication Complications: None Blood loss: Less than 2 cc. Coding CPT Codes Pulmonary/Thoracic - Pulmonary and Thoracic: 91311 Tube thoracostomy ([id number]) Pulmonary/Thoracic - Pulmonary and Thoracic: 59337 Remove lung catheter ([id number]) [facility] Procedure Codes (Charges) Pulmonary/Thoracic Procedure 1: Pulmonary and Thoracic: 37405 Tube thoracostomy Procedure 2: Pulmonary and Thoracic: 02509 Remove lung catheter
--- NOTE | 2020-06-11 12:44 | Hospitalist Consultation ---
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 Chest tube placed by pulmonary medicine yesterday, 06/10/2020. CXR with an increase in size of pneumothorax compared to yesterday. Dr. Orta placed new chest tube today due to increased size of pneumothorax. -Feeling well after pleural catheter exchange -Repeat CXR with tiny left apical pneumothorax has decreased in size status post left pleural catheter exchange -Mgmt per pulm. Cardiology also following closely. Continue outpatient cardiovascular medications including aspirin, atorvastatin, clopidogrel, lisinopril, metoprolol -CXR and labs in AM (5) DM2 (diabetes mellitus, type 2): BSG elevated in 200s - glycemic mgmt per pharmacy DVT Ppx: SCDs PCP: ASCENICON Sánchez Patient seen in collaboration with Dr. Roberts. Please see addendum. Thank you for this consultation. We will follow the patient with you during their hospital stay. You can reach a member of the [facility]ist Team 16/04 via pager @ [phone]. Supervising Physician Co-Signing Physician Notes I saw this patient with the physician rehab assistant, I participated in the history, physical, review of systems, and physical exam. I reviewed the medications with the patient and the physician rehab assistant and helped reconcile the medications. I helped take a detailed family and social history as well. I formulated the assessment and plan personally with the physician rehab assistant and went over it with the patient. Physical Exam Gen-AAO x 3, NAD, Afebrile Head-NCAT, EOMI, PERRLA, Anicteric Sclera, No Posterior Pharyngeal Erythema Neck-Supple, No JVD, No Thyromegaly, No Masses, No LAD, No Bruits Lungs-Diinished on L Chest-No S4, +S1, +S2, No S3, No Murmurs, No Rubs, No Gallops, No Ectopy, +chest tube left +PPM left chest wall Abdomen-Soft, Bowel Sounds Present, Non Tender, Non Distended, No Hepatomegaly, No Splenomegaly, No Palpable Masses, No Rebound, No Rigidity, No Guarding Musculoskeletal-Full Range of Motion Bilaterally, No CVAT Extremities-No Cyanosis, No Clubbing, No Edema Nuero-Cranial Nerves II-XII grossly intact, Motor WNL, DTRs WNL, Strength WNL, Non Focal Psych-Normal Mood History of Present Illness Reason for Consultation: medical mgmt Attending Physician: Nimco Diamond, History of Present Illness This is a 74yo F with a PMH of tachy-linwood syndrome s/p pacemaker placement on 06/10/20 complicated by left-sided pneumothorax. Chest tube placed by pulmonary medicine yesterday, 06/10/2020. CXR with an increase in size of pneumothorax compared to yesterday. Dr. Orta of pul placed new chest tube today due to increased size of pneumothorax. Patient seen and examined in 218-1. Feeling well after procedure with some discomfort around area of chest tube. Denies any lightheadedness, chest pain, palpitations, SOB or near syncope. No fever, chills, nausea, vomiting, abdominal pain, dysuria, diarrhea or constipation. DM management per glycemic pharmacist. Allergies Allergy/AdvReac Type Severity Reaction Status Date / Time acetaminophen Allergy Unknown WEAKNESS Verified 06/09/20 14:08 [id number] Reductase Allergy Unknown MUSCLE Verified 06/09/20 14:08 Inhibitor ACHES terfenadine AdvReac Unknown HEART Verified 06/09/20 14:08 PALPITATIONS risedronate sodium AdvReac Muscle Pain Verified 06/09/20 14:08 Home Medications Home Medications Medication Instructions Recorded Confirmed Type ASCORBIC ACID (VITAMIN C) 1 tab PO QAM #0 01/17/16 06/09/20 History ASPIRIN (ASPIRIN CHEWABLE) 81 mg PO QAM #0 01/17/16 06/09/20 History ATORVASTATIN (LIPITOR) 40 mg PO QPM #0 tab 01/17/16 06/09/20 History B-COMPLEX VITAMINS (VITAMIN B 1 tab PO QAM #0 01/17/16 06/09/20 History COMPLEX) BIOTIN 1 tab PO BID #0 01/17/16 06/09/20 History [id number] 1 tab PO QAM #0 01/17/16 06/09/20 History (CALCIUM/MAGNESIUM/ZINC) CHOLECALCIFEROL (VITAMIN D3) 1 tab PO QAM 90 Days #90 tab 01/17/16 06/09/20 History COENZYME Q10 (UBIDECARENONE) 1 cap PO HS #0 01/17/16 06/09/20 History (COQ-10) CYANOCOBALAMIN (VITAMIN B12) 1 tab PO QAM #0 01/17/16 06/09/20 History Calcium/Vitamin D (Os-Feliciano 500 Plus 1 tab PO QAM #0 tab 01/17/16 06/09/20 History D) Clopidogrel (Plavix) 75 mg PO QAM #0 tab 01/17/16 06/09/20 History FERROUS SULFATE 1 tab PO QAM #0 01/17/16 06/09/20 History Insulin Glargine (Lantus) 40 unit SC QAM #0 vial 01/17/16 06/09/20 History LISINOPRIL (PRINIVIL) 20 mg PO BID #0 tab 01/17/16 06/09/20 History LUTEIN-ZEAXANTHIN (LUTEIN) 1 cap PO QAM #0 01/17/16 06/09/20 History METFORMIN HCL (GLUCOPHAGE EXT REL) 1,000 mg PO BID #0 tab 01/17/16 06/09/20 History MULTIPLE VITAMINS W/ MINERALS 1 tab PO QAM #0 01/17/16 06/09/20 History (CENTRUM SILVER ADULT 50+) NATEGLINIDE 1 tab PO TID #0 01/17/16 06/09/20 History OMEGA-3 FATTY ACIDS (OMEGA 3) 1 cap PO QAM #0 01/17/16 06/09/20 History Tocopheryl Acet,Dl-Alpha (Vitamin 400 inter.unit PO QAM #0 cap 01/17/16 06/09/20 History E) OFLOXACIN (OPH) (OCUFLOX OPH SOLN) 1 drp OPR QID 7 Days #5 ml 02/02/16 06/09/20 History Prednisolone Acetate 1% Oph (Pred 1 drp OPR Q OTHER DAY #0 02/02/16 06/09/20 History Forte 1% Oph) metoprolol succinate 50 mg PO QAM 30 Days #30 tab 06/09/20 Rx Patient History Medical History (Updated 06/11/20 @ 13:50 by Sushma Lea PA-C) DM2 (diabetes mellitus, type 2) Tachy-linwood syndrome Pt admitted for elective ppm due to TBS. Underwent procedure. Started on Toprol and monitored overnight then discharged home. Pt did have a small apical PTX on POD 1 CXR; she is asymptomatic; seen by pulmonary got a small pigtail catheter and is doing well. Surgical History (Updated 06/11/20 @ 14:02 by Sushma Lea PA-C) H/O foot surgery S/P carpal tunnel release S/P placement of cardiac pacemaker Family History (Updated 06/11/20 @ 13:50 by Sushma Lea PA-C) Other Diabetes Stroke Social History Smoking Status: Never smoker Hx Alcohol Use: No Hx Substance Use: No Preferred Language: [place] Citizen Beliefs That Will Affect Care: None Current Living Situation: Alone Other Information That Helps Us Care for You: No Feels Safe at Home: Yes Safety Concerns: Feels Safe At This Time Review of Systems Review of Systems: At least ten systems reviewed and negative except as noted in the HPI. Physical Exam Physical Exam: General Appearance: WD/WN, vitals as above, NAD, sitting up in bed, pleasant, conversing easily Head: normocephalic, atraumatic Eyes: normal inspection, PERRL, conjunctivae normal, anicteric sclerae ENT: external ear and nose normal, oropharynx normal Neck: normal visual inspection, trachea midline, no thyromegaly Respiratory: normal respiratory effort, diminished lung sounds left apex, no wheeze, rales, rhonchi. No accessory muscle use Cardiovascular: regular rate, rhythm, no murmur, normal peripheral pulses, no BLE edema. Vessels: no JVD Chest: +chest tube visualized on left chest midaxillary line, bandages c/d/i. + PM anterior left chest wall Abdomen/GI: normal bowel sounds, soft, nontender, no hepatosplenomegaly Extremities/Musculoskeletal: no cyanosis or clubbing, extremities motor strength 5/5 Neurologic: PERRL, EOMI, accommodation nl, no face palsy, no dysarthria, CN's II-XI intact bilaterally and moves all extremities Psychiatric: A+Ox3, euthymic affect Skin: no rashes, normal color, warm/dry Results & Data [facility] & [facility]) Vital Signs (Past 12 Hours) Vital Signs Temp Pulse Pulse Resp BP Pulse Ox 06/11/20 07:41 36.7 C 77 18 161/69 H 98 06/11/20 07:09 67 06/11/20 04:00 36.6 C 73 20 152/75 H 100 Laboratory Results Short CBC 06/09/20 06/09/20 06/10/20 Range/Units 17:27 21:45 07:43 WBC (4.8-10.8) K/uL RBC (4.2-5.4) M/uL Hgb (12.0-16.0) g/dL Hct (37-47) % MCV (80-100) fL MCH (25-34) pg MCHC (32-36) g/dL RDW Std Deviation (36.4-46.3) fL RDW Coeff of Eloisa (11.5-14.5) % Plt Count (130-400) K/uL MPV (7.4-10.4) fL Immature Gran % (Auto) % Neut % (Auto) % Lymph % (Auto) % [place] % (Auto) % Eos % (Auto) % Baso % (Auto) % Neut # (Auto) (1.4-6.5) K/uL Lymph # (Auto) (1.2-3.4) K/uL [place] # (Auto) (0.11-0.59) K/uL Eos # (Auto) (0-0.5) K/uL Baso # (Auto) (0-0.2) K/uL Immature Gran # (Auto) (0.00-0.02) K/uL Sodium (136-145) mmol/L Potassium (3.5-5.1) mmol/L Chloride (98-107) mmol/L Carbon Dioxide (21-32) mmol/L Anion Gap (3-11) BUN (7-18) mg/dl Creatinine (0.6-1.2) mg/dl Est Cr Clr Drug Dosing ml/min Est GFR ( Amer) Est GFR (Non-Af Amer) BUN/Creatinine Ratio (10-20) Glucose (70-99) mg/dl POC Glucose 149 H 189 H 211 H (70-99) mg/dl Estimat Average Glucose mg/dl Hemoglobin A1c (4.5-5.6) % Calcium (8.5-10.1) mg/dl 06/10/20 06/10/2006/10/20 Range/Units 11:24 16:44 20:37 WBC (4.8-10.8) K/uL RBC (4.2-5.4) M/uL Hgb (12.0-16.0) g/dL Hct (37-47) % MCV (80-100) fL MCH (25-34) pg MCHC (32-36) g/dL RDW Std Deviation (36.4-46.3) fL RDW Coeff of Eloisa (11.5-14.5) % Plt Count (130-400) K/uL MPV (7.4-10.4) fL Immature Gran % (Auto) % Neut % (Auto) % Lymph % (Auto) % [place] % (Auto) % Eos % (Auto) % Baso % (Auto) % Neut # (Auto) (1.4-6.5) K/uL Lymph # (Auto) (1.2-3.4) K/uL [place] # (Auto) (0.11-0.59) K/uL Eos # (Auto) (0-0.5) K/uL Baso # (Auto) (0-0.2) K/uL Immature Gran # (Auto) (0.00-0.02) K/uL Sodium (136-145) mmol/L Potassium (3.5-5.1) mmol/L Chloride (98-107) mmol/L Carbon Dioxide (21-32) mmol/L Anion Gap (3-11) BUN (7-18) mg/dl Creatinine (0.6-1.2) mg/dl Est Cr Clr Drug Dosing ml/min Est GFR ( Amer) Est GFR (Non-Af Amer) BUN/Creatinine Ratio (10-20) Glucose (70-99) mg/dl POC Glucose 233 H 139 H 192 H (70-99) mg/dl Estimat Average Glucose mg/dl Hemoglobin A1c (4.5-5.6) % Calcium (8.5-10.1) mg/dl 06/11/20 06/11/20 06/11/20 Range/Units 06:58 07:21 07:21 WBC 4.73 L (4.8-10.8) K/uL RBC 4.59 (4.2-5.4) M/uL Hgb 13.5 (12.0-16.0) g/dL Hct 41.3 (37-47) % MCV 90.0 (80-100) fL MCH 29.4 (25-34) pg MCHC 32.7 (32-36) g/dL RDW Std Deviation 45.5 (36.4-46.3) fL RDW Coeff of Eloisa 13.8 (11.5-14.5) % Plt Count 119 L (130-400) K/uL MPV 9.2 (7.4-10.4) fL Immature Gran % (Auto) 0.0 % Neut % (Auto) 67.4 % Lymph % (Auto) 22.6 % [place] % (Auto) 8.5 % Eos % (Auto) 1.3 % Baso % (Auto) 0.2 % Neut # (Auto) 3.19 (1.4-6.5) K/uL Lymph # (Auto) 1.07 L (1.2-3.4) K/uL [place] # (Auto) 0.40 (0.11-0.59) K/uL Eos # (Auto) 0.06 (0-0.5) K/uL Baso # (Auto) 0.01 (0-0.2) K/uL Immature Gran # (Auto) 0.00 (0.00-0.02) K/uL Sodium (136-145) mmol/L Potassium (3.5-5.1) mmol/L Chloride (98-107) mmol/L Carbon Dioxide (21-32) mmol/L Anion Gap (3-11) BUN (7-18) mg/dl Creatinine (0.6-1.2) mg/dl Est Cr Clr Drug Dosing ml/min Est GFR ( Amer) Est GFR (Non-Af Amer) BUN/Creatinine Ratio (10-20) Glucose (70-99) mg/dl POC Glucose 198 H (70-99) mg/dl Estimat Average Glucose 183 mg/dl Hemoglobin A1c 8.0 H (4.5-5.6) % Calcium (8.5-10.1) mg/dl 06/11/20 06/11/20 06/11/20 Range/Units 07:21 11:36 13:03 WBC 4.36 L (4.8-10.8) K/uL RBC 4.61 (4.2-5.4) M/uL Hgb 13.6 (12.0-16.0) g/dL Hct 40.9 (37-47) % MCV 88.7 (80-100) fL MCH 29.5 (25-34) pg MCHC 33.3 (32-36) g/dL RDW Std Deviation 44.2 (36.4-46.3) fL RDW Coeff of Eloisa 13.6 (11.5-14.5) % Plt Count 104 L (130-400) K/uL MPV 9.0 (7.4-10.4) fL Immature Gran % (Auto) % Neut % (Auto) % Lymph % (Auto) % [place] % (Auto) % Eos % (Auto) % Baso % (Auto) % Neut # (Auto) (1.4-6.5) K/uL Lymph # (Auto) (1.2-3.4) K/uL [place] # (Auto) (0.11-0.59) K/uL Eos # (Auto) (0-0.5) K/uL Baso # (Auto) (0-0.2) K/uL Immature Gran # (Auto) (0.00-0.02) K/uL Sodium 136 (136-145) mmol/L Potassium 4.2 (3.5-5.1) mmol/L Chloride 102 (98-107) mmol/L Carbon Dioxide 29 (21-32) mmol/L Anion Gap 5.0 (3-11) BUN 10 (7-18) mg/dl Creatinine 0.61 (0.6-1.2) mg/dl Est Cr Clr Drug Dosing 73.9 ml/min Est GFR ( Amer) 103.5 Est GFR (Non-Af Amer) 89.3 BUN/Creatinine Ratio 16.3 (10-20) Glucose 202 H (70-99) mg/dl POC Glucose 247 H (70-99) mg/dl Estimat Average Glucose mg/dl Hemoglobin A1c (4.5-5.6) % Calcium 8.4 L (8.5-10.1) mg/dl BMP 06/11/20 06/11/20 07:21 13:03 Sodium 136 134 L Potassium 4.2 4.2 Chloride 102 100 Carbon Dioxide 29 28 BUN 10 10 Creatinine 0.61 0.62 Glucose 202 H 231 H Calcium 8.4 L 9.2 Diagnostic Findings CXR: IMPRESSION: Tiny left apical pneumothorax has decreased in size status post left pleural catheter exchange. (1) DM2 (diabetes mellitus, type 2) Diabetes mellitus complication status: without complication Diabetes mellitus terminal supervisor insulin use: with terminal supervisor use Qualified Code(s): E11.9 - Type 2 diabetes mellitus without complications; Z79.4 - FPC (current) use of insulin (2) Pacemaker complications Encounter type: initial encounter Qualified Code(s): T82.9XXA - Unspecified complication of cardiac and vascular prosthetic device, implant and graft, initial encounter
--- NOTE | 2020-06-11 12:53 | XRay Report ---
XR chest 1V portable HISTORY: 74 years-old Female s/p chest tube placement left-sided chest tube exchange with pneumothor ax COMPARISON: Chest radiograph of same day at 10:50 AM TECHNIQUE: Portable upright AP view of the chest FINDINGS: Unchanged cardiomediastinal and hilar contours. There is improved aeration of the lung bases with mil d persistent right lung base atelectasis. No pleural effusion, overt pulmonary edema or new airspace opacity. Left lung base pigtail catheter is in place. There is decreased size of the left pneumothora x with now only a tiny left apical pneumothorax with pleural separation of 5 mm. Degenerative changes of the shoulders and spine with left shoulder rotator cuff calcific tendinosis. IMPRESSION: Tiny left apical pneumothorax has decreased in size status post left pleural catheter exc hange. ACT 112: Negative or not required by law. The above report was generated using voice recognition software. It may contain grammatical, syntax o r spelling errors. Electronically signed by: Rhett Sorto M.D. 06/11/2020 12:52 PM
[2020-06-11 13:12] LABS: Hematocrit (blood only) 40.9 % (37-47); Hemoglobin 13.6 g/dL (12.0-16.0); Mean Corpuscular Hemoglobin 29.5 pg (25-34); Mean Corpuscular Hgb Conc 33.3 g/dL (32-36); Mean Corpuscular Volume 88.7 fL (80-100); Platelet Count 104 K/uL (130-400); RDW Coefficient of Variation 13.6 % (11.5-14.5); RDW Standard Deviation 44.2 fL (36.4-46.3); Red Blood Count 4.61 M/uL (4.2-5.4); White Blood Count 4.36 K/uL (4.8-10.8)
[2020-06-11 13:46] LABS: BUN Creatinine Ratio 15.9 (10-20); Calcium 9.2 mg/dl (8.5-10.1); Creatinine Clr Calc Pharmacy 72.7 ml/min; Est GFR (Non-African American) 88.8; Potassium 4.2 mmol/L (3.5-5.1)
[2020-06-11] MEDS: ATORVASTATIN 40 MG TAB PO SCH (21:00)
--- NOTE | 2020-06-12 08:02 | Pulmonology Progress Note ---
Date of Service June 12, 2020 Assessment & Plan (1) Pneumothorax, iatrogenic: Impression: 74 y/o F with iatrogenic PTX post L sided pacemaker implantation. Treated with inital 8 Fr tube, upsized to 14 Fr 06/11. CXR today without PTX. Recommendations: 1. Iatrogenic PTX: Clamped chest tube this AM. Repeat CXR at 11 AM. If lung remains up, will discontinue tube. If PTX enlarges, will return to suction. Discussed with patient at bedside. Questions answered. Admission and Anticipated Discharge Date Admission Date: June 11, 2020 Subjective Patient seen and examined. EMR reviewed. Patient complains of some slight increased pain at the site of the chest tube placement. No air leak or crepitus. Tolerating diet. Review of Systems Review of Systems: All systems reviewed & are unremarkable except as noted in HPI & below Physical Exam Constitutional: WD/WN, vitals as above Neck: trachea midline, no thyromegaly Respiratory: normal respiratory effort, lungs clear to auscultation Cardiovascular: RRR, no murmur, no edema Chest (Breasts): Additional Comments: Pacemaker site dressed on the left chest. No crepitus or tracheal deviation. NO air leak with cough. Gastrointestinal (Abdomen): normal bowel sounds, soft, nontender, no hepatosplenomegaly Musculoskeletal: Extremities: extremities normal to inspection Skin: no rashes, warm and dry Neurologic: Nonfocal exam Lymphatic: no cervical lymphadenopathy Results & Data Results & Data ([facility]) Vital Signs (Past 12 Hours) Vital Signs Temp Pulse Resp BP Pulse Ox 06/12/20 04:13 36.8 C 73 18 133/73 99 06/11/20 23:32 36.7 C 74 18 123/71 98 Laboratory Results 06/11/20 13:03 06/11/20 13:03 Diagnostic Findings CXR this am 0719 reviewed. no appreciable PTX. Pigtail in good position. PG Care Time/CCT Total # of Minutes Spent Total Time Spent with Patient: Total time spent is greater than 50% in coordination of care (as documented) at patient's floor/unit and/or counseling patient: Coding Level of Care Code 37598 Subseq Hosp Care Lvl 2 Diagnoses Pneumothorax, iatrogenic J95.811
[2020-06-12] MEDS: INSULIN ASPART 100 UNITS/ML 3 ML PEN SC SCH ×4 (08:29→20:27)
[2020-06-12] MEDS: INSULIN GLARGINE SOLOSTAR 100 UNITS/ML 3 ML PEN SC SCH (08:29)
[2020-06-12] MEDS: FERROUS SULFATE 325 MG TAB PO SCH (08:32)
[2020-06-12] MEDS: OXYCODONE/ACETAMINOPHEN 5mg/325mg TAB PO PRN (08:32)
[2020-06-12] MEDS: TOCOPHERYL, DL-ALPHA 400 UNITS CAP PO SCH (08:32)
[2020-06-12] MEDS: OMEGA-3 (PURIFIED FISH OIL) 1 GM CAP PO SCH (08:33)
[2020-06-12] MEDS: ASCORBIC ACID 500 MG TAB PO SCH (08:33)
[2020-06-12] MEDS: CEROVITE ADV FORMULA TAB PO SCH (08:33)
[2020-06-12] MEDS: CALCIUM 600MG + VIT D 400 IU TAB PO SCH (08:33)
[2020-06-12] MEDS: lisinopriL 20 MG TAB PO SCH ×2 (08:33→20:02)
[2020-06-12] MEDS: METOPROLOL SUCC 50MG EXT REL TAB PO SCH (08:33)
[2020-06-12] MEDS: VITAMIN B COMPLEX TAB PO SCH (08:34)
[2020-06-12] MEDS: CLOPIDOGREL BISULFATE 75 MG TAB PO SCH (08:34)
[2020-06-12] MEDS: prednisoLONE acetate 1% OP SUSP 5 ML BTL OP SCH (08:34)
[2020-06-12] MEDS: CHOLECALCIFEROL 1,000 UNITS 25 MCG TAB PO SCH (08:34)
[2020-06-12] MEDS: ASPIRIN 81 MG ECTAB PO SCH (08:34)
[2020-06-12] MEDS: CYANOCOBALAMIN 500 MCG TABLET (VITAMIN B-12) PO SCH (08:35)
--- NOTE | 2020-06-12 09:43 | XRay Report ---
SINGLE VIEW CHEST CLINICAL HISTORY: Follow-up pneumothorax. FINDINGS: An AP, portable, upright chest radiograph is compared to study dated 06/11/2020. The examina tion is degraded by portable technique and patient rotation. A 2-lead cardiac pacemaker is unchanged in position, as is a pigtail catheter the left lung base. The heart is top normal for projection noti ng atherosclerotic calcification of the thoracic aorta. The pulmonary vasculature is noncongested. Ch ronic interstitial thickening is similar to previous. There are low lung volumes. Scarring/atelectasi s is seen at both lung bases. There is no airspace consolidation typical for pneumonia. No large pleu ral effusion or pneumothorax is seen. The skeletal structures are osteopenic. The bony thorax is maegan sly intact. IMPRESSION: 1. A pigtail catheter is again seen at the left lung base. The trace pneumothorax seen yesterday is n o longer identified. 2. No airspace consolidation or large pleural effusion is seen. ACT 112: Negative or not required by law. Electronically signed by: Binh Key M.D. 06/12/2020 9:42 AM
--- NOTE | 2020-06-12 10:19 | Pharmacy Report ---
Pharmacy Glycemic Short Note 2 - Date of Service June 12, 2020 - Glycemic Short BSG Results (Last 24 hours): 06/11/20 06/11/20 06/11/20 07:21 11:36 13:03 Glucose 202 H 231 H POC Glucose 247 H OUTPATIENT ANTIDIABETIC REGIMEN: * Lantus 40 units SQ qAM + Nateglinide 120 mg PO TIDM + Metformin 1000 mg PO BIDM * A1c = 8.0% (06/11/2020) ASSESSMENT: 06/12: * Pt has received 78 units of insulin over the past 24hrs * 45 units of basal with Lantus * 33 units of prandial/correctional with NovoLog * BSGs [phone] mg/dl * AM fasting BSG slightly above goal range for inpatient targets. However, s ignificant downward trend over the past 24hrs and insulin regimen is weighted towards basal insulin. Will empirically decrease basal insulin from 45 units to 40 units to prevent LOW tomorrow. This is her outpatient dosing * Post-prandial BSGs are in range. No changes needed to CF/CR 06/11: * BSGs uncontrolled yesterday: [phone] mg/dL * Received a total of 58 units of insulin yesterday: 40 basal + 18 bolus * Fasting BSG was 198 mg/dL this AM - uncontrolled * Will stress home dose and increased Lantus dose this morning * Tightened CF/CR this morning given post-prandial hyperglycemia last evening * Lunchtime BSG was 247 mg/dL 06/10: * 74 yo F admitted for observation s/p pacemaker placement * Post-op BSGs yesterday trended up: 149-189 mg/dL * Received 3 units of bolus insulin yesterday * Fasting BSG this AM was 211 mg/dL - uncontrolled * Likely due to basal deficiency * Received 30 units of Lantus this AM + 7 units of Novolog * Will tighten CF/CR with lunch today and continue current basal scale PLAN FOR INPATIENT GLYCEMIC CONTROL: * Hold outpatient oral diabetes medications * Basal insulin - decreased * Lantus 40 units SQ qAM * Bolus insulin - no change; may need to tighten since basal insulin decreased this AM (may have been covering some prandial needs yesterday) * NovoLog per scale ACHS or Q6hrs while NPO * Goal Range: Low 110 mg/dL - High 140 mg/dL * Correction Factor: 15 mg/dL/unit * Nutritional / Prandial insulin per carb ratio of 1 unit per 5 grams CHO consumed PLAN FOR DISCHARGE: * HbA1c = 8.0% from 06/11/2020 * Goal A1c less than 8.0% based on age and comorbidities * If patient is not experiencing any hypoglycemia at home, would recommend increasing Lantus dose to 45 units SQ qAM. Close follow-up with outpatient provider is recommended. * Recommend patient self-management with: * Healthy Lifestyle (diet, exercise, etc.) * Disease self-management (SMBG) * Prevention of complications (BP, Lipid goals, Immunizations)
--- NOTE | 2020-06-12 10:51 | Cardiology Progress Note ---
Date of Service June 12, 2020 Assessment & Plan (1) Pneumothorax, iatrogenic: As per pulmonology management, chest tube currently clamped with pending x-ray. Anticipate at least overnight stay (2) Pacemaker complications: (3) Tachy-linwood syndrome: Status post His bundle dual-chamber pacemaker insertion with normal device function (4) DM2 (diabetes mellitus, type 2): Continue outpatient cardiovascular medications including aspirin, atorvastatin, clopidogrel, lisinopril, metoprolol. Update labs including basic metabolic panel and CBC. SCDs ordered for DVT prophylaxis. Consult pharmacy regarding diabetes management. Admission and Anticipated Discharge Date Admission Date: June 11, 2020 Subjective Patient was seen and examined, chart, medications, telemetry reviewed. No cardiac complaints but does have pain at site of chest tube insertion. Chest tube currently clamped with anticipation of repeat x-ray this morning. No dizziness or lightheadedness. No irritation at pacemaker site. Telemetry reveals normal pacemaker function, His bundle device Results & Data ([facility]) Vital Signs (Past 12 Hours) Vital Signs Temp Pulse Resp BP Pulse Ox 06/12/20 08:15 36.8 C 78 78 H 120/60 97 06/12/20 04:13 36.8 C 73 18 133/73 99 06/11/20 23:32 36.7 C 74 18 123/71 98 Laboratory Results Laboratory Results - last 24 hr 06/11/20 06/11/20 06/11/20 11:36 13:03 13:03 WBC 4.36 L RBC 4.61 Hgb 13.6 Hct 40.9 MCV 88.7 MCH 29.5 MCHC 33.3 RDW Std Deviation 44.2 RDW Coeff of Eloisa 13.6 Plt Count 104 L MPV 9.0 Sodium 134 L Potassium 4.2 Chloride 100 Carbon Dioxide 28 Anion Gap 7.0 BUN 10 Creatinine 0.62 Est Cr Clr Drug Dosing 72.7 Est GFR ( Amer) 103.0 Est GFR (Non-Af Amer) 88.8 BUN/Creatinine Ratio 15.9 Glucose 231 H POC Glucose 247 H Calcium 9.2 06/12/20 07:10 WBC RBC Hgb Hct MCV MCH MCHC RDW Std Deviation RDW Coeff of Eloisa Plt Count MPV Sodium Potassium Chloride Carbon Dioxide Anion Gap BUN Creatinine Est Cr Clr Drug Dosing Est GFR ( Amer) Est GFR (Non-Af Amer) BUN/Creatinine Ratio Glucose POC Glucose 159 H Calcium (1) Pacemaker complications Encounter type: initial encounter Qualified Code(s): T82.9XXA - Unspecified complication of cardiac and vascular prosthetic device, implant and graft, initial encounter (2) DM2 (diabetes mellitus, type 2) Diabetes mellitus intermediate insulin use: with intermediate use Diabetes mellitus complication status: without complication Qualified Code(s): E11.9 - Type 2 diabetes mellitus without complications; Z79.4 - MCC (current) use of insulin
--- NOTE | 2020-06-12 11:20 | XRay Report ---
SINGLE VIEW CHEST CLINICAL HISTORY: Follow-up pneumothorax. FINDINGS: An AP, portable, upright chest radiograph is compared to study performed earlier the same d ay 06/12/2020. The examination is degraded by portable technique and patient rotation. A 2-lead cardia c pacemaker is unchanged in position, as is a pigtail catheter the left lung base. The heart is top n ormal for projection noting atherosclerotic calcification of the thoracic aorta. The pulmonary vascul ature is noncongested. Chronic interstitial thickening is similar to previous. There are low lung vol umes. Scarring/atelectasis is seen at both lung bases. There is no airspace consolidation typical for pneumonia. No large pleural effusion or pneumothorax is seen. The skeletal structures are osteopenic . The bony thorax is grossly intact. IMPRESSION: 1. A pigtail catheter is again seen at the left lung base. 2. No pneumothorax is identified. No change from today's earlier examination. ACT 112: Negative or not required by law. Electronically signed by: Binh Key M.D. 06/12/2020 11:18 AM
--- NOTE | 2020-06-12 12:02 | Procedure Note ---
Procedure Note Date of Service June 12, 2020 Procedure: Removal of left-sided 14 Singaporean pigtail skater catheter Proceduralist Dr. Sosa Anesthesia none Procedure: The patient is had her chest tube clamped since 8:00 this morning. Follow-up chest x-ray 3 hours later showed no evidence of pneumothorax. He was deemed appropriate to discontinue the chest tube. The patient was placed in a seated position. The dressing was taken down. The sutures securing the pigtail were released. The tube was withdrawn under patient exhalation and a occlusive dressing was applied over the incision. This was secured with a Tegaderm. Patient tolerated the procedure well without complication. Coding CPT Codes Pulmonary/Thoracic - Pulmonary and Thoracic: 10407 Remove lung catheter ([id number]) [facility] [place] [place] ([place]arges) Pulmonary/Thoracic Procedure 1: Pulmonary and Thoracic: 01458 Remove lung catheter
--- NOTE | 2020-06-12 13:15 | Hospitalist Progress Note ---
Date of Service June 12, 2020 Assessment & Plan (1) Tachy-linwood syndrome: Status post pacemaker placement on 06/10/2020 Cardiology following Normal device function Patient is continued with outpatient cardiac medications aspirin atorvastatin Plavix lisinopril metoprolol (2) S/P placement of cardiac pacemaker: (3) Pacemaker complications: (4) Pneumothorax, iatrogenic: left-sided apical pneumothorax-left post pacemaker placement Chest tube placed by pulmonary medicine, 06/11/2020. Repeat chest x-ray showed slight increase in size of pneumothorax, chest tube was replaced by pulmonology -Chest x-ray this morning shows resolution of pneumothorax Tube kept clamped for 3 hours as per pulmonology recommendation Repeat chest x-ray shows unchanged study/no pneumothorax identified Chest tube removed by pulmonology today (5) DM2 (diabetes mellitus, type 2): Pharmacy consulted for glycemic management, appreciate input DVT Ppx: SCDs PCP: ASCENCION Sánchez Thank you for this consultation. We will follow the patient with you during their hospital stay. You can reach a member of the [facility] Hospitalist Team 16/04 via pager @ [phone]. Admission and Anticipated Discharge Date Admission Date: June 11, 2020 Subjective Had an uneventful night, No shortness of breath no palpitation no dizzy spell No fever or chills, Complains of pain with movement at the chest tube site Chest x-ray in a.m. showed resolution of pneumothorax, chest tube kept clamped Complaint of worsening of shortness of breath chest pain or difficulty breathing Pacemaker insertion site looks well-healed, no erythema or tenderness/evidence of hematoma Review of Systems Review of Systems: All systems reviewed & are unremarkable except as noted in HPI & below Physical Exam Constitutional: WD/WN, vitals as above no acute distress Eyes: PERRL, conjunctivae normal, anicteric sclerae ENMT: external ear and nose normal, oropharynx normal Neck: trachea midline, no thyromegaly Respiratory: normal respiratory effort, lungs clear to auscultation Cardiovascular: RRR, no murmur, no edema Gastrointestinal (Abdomen): normal bowel sounds, soft, nontender, no hepatosplenomegaly Musculoskeletal: Deficit chest wall area: Chest tube insertion it looks well- healed, no ecchymosis no hematoma no tenderness, no erythema Skin: no rashes, warm and dry Neurologic: PERRL, EOMI, accommodation nl, no face palsy, no dysarthria Psychiatric: A+Ox3, euthymic affect Results & Data Results & Data ([facility]) Vital Signs (Past 12 Hours) Vital Signs Temp Pulse Resp BP Pulse Ox 06/12/20 11:39 36.5 C 66 17 157/71 H 97 06/12/20 08:15 36.8 C 78 78 H 120/60 97 06/12/20 04:13 36.8 C 73 18 133/73 99 (1) DM2 (diabetes mellitus, type 2) Diabetes mellitus complication status: without complication Diabetes mellitus shelter insulin use: with termite helper use Qualified Code(s): E11.9 - Type 2 diabetes mellitus without complications; Z79.4 - intermodal owner operator truck driver (current) use of insulin (2) Pacemaker complications Encounter type: initial encounter Qualified Code(s): T82.9XXA - Unspecified complication of cardiac and vascular prosthetic device, implant and graft, initial encounter
[2020-06-12] MEDS: ATORVASTATIN 40 MG TAB PO SCH (20:02)
[2020-06-13] MEDS: ACETAMINOPHEN 325 MG TAB PO PRN (04:14)
[2020-06-13] MEDS: INSULIN ASPART 100 UNITS/ML 3 ML PEN SC SCH ×3 (08:10→11:41)
[2020-06-13] MEDS: INSULIN GLARGINE SOLOSTAR 100 UNITS/ML 3 ML PEN SC SCH (08:20)
[2020-06-13] MEDS: CHOLECALCIFEROL 1,000 UNITS 25 MCG TAB PO SCH (08:21)
[2020-06-13] MEDS: CEROVITE ADV FORMULA TAB PO SCH (08:21)
[2020-06-13] MEDS: ASCORBIC ACID 500 MG TAB PO SCH (08:21)
[2020-06-13] MEDS: CALCIUM 600MG + VIT D 400 IU TAB PO SCH (08:21)
[2020-06-13] MEDS: TOCOPHERYL, DL-ALPHA 400 UNITS CAP PO SCH (08:21)
[2020-06-13] MEDS: VITAMIN B COMPLEX TAB PO SCH (08:21)
[2020-06-13] MEDS: METOPROLOL SUCC 50MG EXT REL TAB PO SCH (08:21)
[2020-06-13] MEDS: CYANOCOBALAMIN 500 MCG TABLET (VITAMIN B-12) PO SCH (08:21)
[2020-06-13] MEDS: FERROUS SULFATE 325 MG TAB PO SCH (08:21)
[2020-06-13] MEDS: OMEGA-3 (PURIFIED FISH OIL) 1 GM CAP PO SCH (08:21)
[2020-06-13] MEDS: CLOPIDOGREL BISULFATE 75 MG TAB PO SCH (08:22)
[2020-06-13] MEDS: lisinopriL 20 MG TAB PO SCH (08:22)
[2020-06-13] MEDS: ASPIRIN 81 MG ECTAB PO SCH (08:22)
--- NOTE | 2020-06-13 08:31 | Pharmacy Report ---
Pharmacy Glycemic Short Note 2 - Date of Service June 13, 2020 - Glycemic Short BSG Results (Last 24 hours): 06/11/20 06/11/20 06/12/20 16:28 20:17 07:10 POC Glucose 120 H 153 H 159 H 06/12/20 06/12/20 06/12/20 11:08 15:37 20:10 POC Glucose 256 H 116 H 195 H 06/13/20 07:33 POC Glucose 128 H OUTPATIENT ANTIDIABETIC REGIMEN: * Lantus 40 units SQ qAM + Nateglinide 120 mg PO TIDM + Metformin 1000 mg PO BIDM * A1c = 8.0% (06/11/2020) ASSESSMENT: 06/13: * Pt has received 72 units of insulin over the past 24hrs * 40 units of basal with Lantus * 32 units of prandial/correctional with NovoLog * BSGs [phone] mg/dl * AM fasting BSG in goal range at 128 mg/dl. No changes needed to basal insulin dosing. Empirically decreased basal insulin yesterday from 45 units to 40 u nits since AM fasting BSGs were trending downwards. * Post-prandial BSGs (pre-lunch) typically is the highest BSG of the day. Will tighten CR with breakfast only to prevent high before lunch. 06/12: * Pt has received 78 units of insulin over the past 24hrs * 45 units of basal with Lantus * 33 units of prandial/correctional with NovoLog * BSGs [phone] mg/dl * AM fasting BSG slightly above goal range for inpatient targets. However, significant downward trend over the past 24hrs and insulin regimen is weighted towards basal insulin. Will empirically decrease basal insulin from 45 units to 40 units to prevent LOW tomorrow. This is her outpatient dosing * Post-prandial BSGs are in range. No changes needed to CF/CR 06/11: * BSGs uncontrolled yesterday: [phone] mg/dL * Received a total of 58 units of insulin yesterday: 40 basal + 18 bolus * Fasting BSG was 198 mg/dL this AM - uncontrolled * Will stress home dose and increased Lantus dose this morning * Tightened CF/CR this morning given post-prandial hyperglycemia last evening * Lunchtime BSG was 247 mg/dL 06/10: * 74 yo F admitted for observation s/p pacemaker placement * Post-op BSGs yesterday trended up: 149-189 mg/dL * Received 3 units of bolus insulin yesterday * Fasting BSG this AM was 211 mg/dL - uncontrolled * Likely due to basal deficiency * Received 30 units of Lantus this AM + 7 units of Novolog * Will tighten CF/CR with lunch today and continue current basal scale PLAN FOR INPATIENT GLYCEMIC CONTROL: * Hold outpatient oral diabetes medications * Basal insulin -continue/no change * Lantus 40 units SQ qAM * Bolus insulin - tighten CR with breakfast ONLY * NovoLog per scale ACHS or Q6hrs while NPO * Goal Range: Low 110 mg/dL - High 140 mg/dL * Correction Factor: 15 mg/dL/unit * Nutritional / Prandial insulin per carb ratio of 1 unit per 4 grams CHO consumed at breakfast & 1 unit per 5 grams CHO consumed at all other meals/snacks PLAN FOR DISCHARGE: * HbA1c = 8.0% from 06/11/2020 * Goal A1c less than 8.0% based on age and comorbidities * If patient is not experiencing any hypoglycemia at home, would recommend incr easing Lantus dose to 45 units SQ qAM. Close follow-up with outpatient provider is recommended. * Recommend patient self-management with: * Healthy Lifestyle (diet, exercise, etc.) * Disease self-management (SMBG) * Prevention of complications (BP, Lipid goals, Immunizations)
--- NOTE | 2020-06-13 08:46 | XRay Report ---
XR chest 1V portable HISTORY: Follow-up left-sided pneumothorax COMPARISON: Chest 06/12/2020. FINDINGS: Interval removal of the left-sided chest tube. No left pneumothorax identified. There is a left-sided dual-chamber pacemaker. Mild elevation the right hemidiaphragm persists. Right basilar den sities have improved. The cardiac silhouette remains top normal in size. No evidence for pulmonary ed soha. IMPRESSION: 1. Interval removal of the left-sided chest tube. No left pneumothorax identified. 2. Right basilar densities have also improved. ACT 112: Negative or not required by law. Electronically signed by: Dax Negron M.D. 06/13/2020 8:45 AM
--- NOTE | 2020-06-13 10:28 | Cardiology Progress Note ---
Date of Service June 13, 2020 Assessment & Plan (1) Pneumothorax, iatrogenic: Appears resolved by x-ray and clinically. Patient ambulatory without limitation No contraindications from cardiac standpoint for discharge to home. Patient has follow-up wound check and pacemaker interrogation on Sunday (2) S/P placement of cardiac pacemaker: (3) Tachy-linwood syndrome: Admission and Anticipated Discharge Date Admission Date: June 11, 2020 Subjective Patient seen and examined, chart, medications, telemetry reviewed. Patient ambulatory in room and hallway without difficulty. No further pneumothorax on repeat chest x-ray after chest tube removed Pacemaker functioning appropriately on telemetry Physical Exam Constitutional: WD/WN, vitals as above Eyes: PERRL, conjunctivae normal, anicteric sclerae ENMT: external ear and nose normal, oropharynx normal Neck: trachea midline, no thyromegaly Respiratory: normal respiratory effort, lungs clear to auscultation Cardiovascular: Rate/Rhythm: regular rate and regular rhythm Heart Sounds: normal S1 and normal S2; no gallop and no murmur Palpation: normal PMI Vessels: normal carotid upstroke and radial pulses present; no JVD and no carotid bruit Extremities: no edema Chest (Breasts): Chest: + pacemaker (Site healing well) Additional Comments: Chest tube site bandaged Gastrointestinal (Abdomen): normal bowel sounds, soft, nontender, no hepatosplenomegaly Musculoskeletal: no cyanosis or clubbing, extremities motor strength 5/5 Skin: no rashes, warm and dry Neurologic: PERRL, EOMI, accommodation nl, no face palsy, no dysarthria Psychiatric: A+Ox3, euthymic affect Results & Data ([facility]) Vital Signs (Past 12 Hours) Vital Signs Temp Pulse Pulse Resp BP Pulse Ox 06/13/20 08:00 67 06/13/20 07:03 36.5 C 65 20 126/71 96 06/13/20 04:05 36.5 C 71 18 168/70 H 98 06/13/20 00:00 67 06/12/20 23:20 37 C 73 18 127/71 95 Laboratory Results Laboratory Results - last 24 hr 06/11/20 06/11/20 06/12/20 16:28 20:17 07:10 POC Glucose 120 H 153 H 159 H 06/12/20 06/12/20 06/12/20 11:08 15:37 20:10 POC Glucose 256 H 116 H 195 H 06/13/20 07:33 POC Glucose 128 H
--- NOTE | 2020-06-13 11:18 | Discharge Summary ---
Date of Service June 13, 2020 Admission HPI Per Admitting Provider pt admitted for ppm due TBS Admission Exam (Per Admitting) Constitutional WD/WN, vitals as above Eyes PERRL, conjunctivae normal, anicteric sclerae ENMT external ear and nose normal, oropharynx normal Neck trachea midline, no thyromegaly Respiratory normal respiratory effort, lungs clear to auscultation Cardiovascular Rate/Rhythm: regular rate and regular rhythm Heart Sounds: normal S1 and normal S2; no gallop and no murmur Palpation: normal PMI Vessels: normal carotid upstroke and radial pulses present; no JVD and no carotid bruit Extremities: no edema Chest (Breasts) Chest: + pacemaker (Site healing well without hematoma or irritation no erythema) Additional Comments: Chest tube insertion sites bandaged and intact Gastrointestinal (Abdomen) normal bowel sounds, soft, nontender, no hepatosplenomegaly Musculoskeletal no cyanosis or clubbing, extremities motor strength 5/5 Skin no rashes, warm and dry Neurologic PERRL, EOMI, accommodation nl, no face palsy, no dysarthria Psychiatric A+Ox3, euthymic affect Discharge Data Consultations 06/10/20 08:37 Consult Pulmonology Routine 06/11/20 11:49 Consult Internal Medicine Routine Procedures Performed Operation Date: 06/09/20 15:00 Actual Procedures s Bundle of his Recording - Nimco Diamond DO p Pacer with A/V Leads (Dual) - Nimco Diamond DO s Venogram, Unilateral - Nimco Diamond DO Hospital Course (1) Tachy-linwood syndrome: Patient is a 74-year-old female with tachybradycardia syndrome admitted for dual-chamber pacemaker insertion. Initial procedure uneventful however postoperative pneumothorax observed m inimally symptomatic. Pulmonology was consulted and patient referred for thoracostomy. Initially patient had persistent pneumothorax with first chest tube was subsequently exchange and resolved with pneumothorax. Chest tube was resumed moved Patient observed for additional 24 hours with ambulation in the hallway and chest x-ray demonstrating no recurrence. Pacemaker functioning appropriately Patient was discharged home with anticipation with follow-up for wound check and pacemaker evaluation on 06/15/2020 Lloyd Davis (2) S/P placement of cardiac pacemaker: (3) Pneumothorax, iatrogenic:
--- NOTE | 2020-06-13 11:48 | Hospitalist Progress Note ---
Date of Service June 13, 2020 Assessment & Plan (1) Tachy-linwood syndrome: Status post pacemaker placement on 06/10/2020 Cardiology following Normal device function Patient is continued with outpatient cardiac medications aspirin atorvastatin Plavix lisinopril metoprolol stable to be discharged home today (2) S/P placement of cardiac pacemaker: (3) Pacemaker complications: (4) Pneumothorax, iatrogenic: resolved left-sided apical pneumothorax-left post pacemaker placement Chest tube placed by pulmonary medicine, 06/11/2020. Repeat chest x-ray showed slight increase in size of pneumothorax, chest tube was replaced by pulmonology -Chest x-ray this morning showed no evidence of pneumothorax chest tube removed yesterday Chest Xray today am : shows no evidence of pneumothorax evaluated by Cardiology . stable to be discharged home today (5) DM2 (diabetes mellitus, type 2): Pharmacy consulted for glycemic management, appreciate input DVT Ppx: SCDs PCP: ASCENCION Sánchez pt is discharged home today Admission and Anticipated Discharge Date Admission Date: June 11, 2020 Subjective chest tube removed yesterday had an uneventful night no complain of shortness of breath , no chest pain /no palpitation or dizzy spell Review of Systems Review of Systems: All systems reviewed & are unremarkable except as noted in HPI & below Physical Exam Constitutional: WD/WN, vitals as above no acute distress Eyes: PERRL, conjunctivae normal, anicteric sclerae ENMT: external ear and nose normal, oropharynx normal Neck: trachea midline, no thyromegaly Respiratory: normal respiratory effort, lungs clear to auscultation Cardiovascular: RRR, no murmur, no edema Gastrointestinal (Abdomen): normal bowel sounds, soft, nontender, no hepatosplenomegaly Skin: no rashes, warm and dry Neurologic: PERRL, EOMI, accommodation nl, no face palsy, no dysarthria Psychiatric: A+Ox3, euthymic affect Results & Data Results & Data ([facility]) Vital Signs (Past 12 Hours) Vital Signs Temp Pulse Pulse Pulse Resp BP Pulse Ox 06/13/20 11:44 36.8 C 70 72 20 129/74 97 06/13/20 11:26 36.8 C 72 20 129/74 97 06/13/20 08:00 67 06/13/20 07:03 36.5 C 65 20 126/71 96 06/13/20 04:05 36.5 C 71 18 168/70 H 98 06/13/20 00:00 67 (1) DM2 (diabetes mellitus, type 2) Diabetes mellitus complication status: without complication Diabetes mellitus residential insulin use: with residential use Qualified Code(s): E11.9 - Type 2 diabetes mellitus without complications; Z79.4 - terminal make up operator (current) use of insulin (2) Pacemaker complications Encounter type: initial encounter Qualified Code(s): T82.9XXA - Unspecified complication of cardiac and vascular prosthetic device, implant and graft, initial encounter
--- NOTE | 2020-06-14 08:01 | Operative Report (OR) ---
DATE OF OPERATION: 06/11/2020 PREOPERATIVE DIAGNOSIS: Tachybrady syndrome, syncope and left bundle branch block. POSTOPERATIVE DIAGNOSES: Tachybrady syndrome, syncope and left bundle branch block. PROCEDURE: Dual chamber (left bundle) rate responsive implantable permanent pacemaker under fluoroscopic guidance along with peripheral venogram, intracardiac electrogram mapping of the His bundle region. SURGEON: Nimco Diamond DO. ASSISTANTS: None. ANESTHESIA: Monitored conscious sedation administered under my supervision by Grecia Penaloza. Start time 1517 end time 1654. Total of 5 mg of Versed and 125 mcg of fentanyl. INTRAVENOUS FLUIDS: 55 mL. ANTIBIOTICS: 1 gram of Ancef. CONTRAST: 20 mL BLOOD LOSS: 20 mL URINE OUTPUT: Not applicable. SPECIMENS: None. FINDINGS: See below. DRAINS: None. COMPLICATIONS: With the postop day 1, chest x-ray did notice a pneumothorax. INDICATIONS: This is a 74-year-old female with past medical history for syncope in March of 2020, sinus bradycardia, left bundle branch block, CVA, hyperlipidemia, diabetic, on insulin, osteoporosis, history of Lyme disease and evidence of tachybrady syndrome, so she was recommended a dual chamber pacemaker. CONSENT: Consent was obtained prior to the patient going into electrophysiology lab. The patient was informed of the risks, benefits and alternative procedure. Risks include but not limited to sudden cardiac , cardiac arrhythmias, cerebrovascular accident, myocardial infarction, injury to the blood vessels, chamber of the heart, lung, bleeding, and infection. The patient understood these risks and agreed to the procedure as planned. Informed consent was obtained. DESCRIPTION OF THE PROCEDURE: The patient was brought into the electrophysiology lab in a fasting state. She was connected to continuous cardiac cath technician. Timeout was performed to ensure patient identity and procedure correctly. The patient was prepped and draped over the left infraclavicular space in normal surgical standard fashion. Monitored conscious sedation given throughout the procedure for patient's comfort level. She received prophylactic antibiotics prior to incision. [place] precautions were maintained throughout the procedure. 10 mL of 1% lidocaine, bupivacaine mixture were given in the left deltopectoral groove. Incision was made in left deltopectoral groove. Blunt dissection performed down to try to identify the cephalic vein; however, none could be identified, so peripheral venogram was performed using 10 mL of IV contrast to identify the axillary vein. Axillary venous access was obtained through a needlestick without any complications, although since I am dictating this later the (postop day 1 chest x-ray did show pneumothorax). An 8-Hong Konger sheath was inserted over the guidewire without any resistance. The dilator is removed and a second guidewire was inserted through the 8-[place]er sheath to allow for retained venous access. The sheath was removed and flushed and dilator reinserted over it and then was reinserted along the guidewires. The 7-[place]er sheath was also inserted over the guidewire. The guidewire and dilator removed from both sheaths. I then placed the right atrial lead, I initially positioned this down into the right ventricular apex and screwed it in so we had backup pacing since she has a left bundle branch block. Then I went to position in the left bundle lead, so through the 8-[place]er sheath the His bundle sheath was then floated into the right ventricle over a guidewire and the dilator and Glidewire were removed. Then we did intracardiac electrogram mapping of the His bundle region in PAVON 10, found the A-H to be 73 and the H-V to be 76. Then I moved the camera to PAVON 30 and I marked where the His bundle is and then ana maría an imaginary line about 10 cm below that towards the apex to john where I was going to be trying to position my left bundle lead. I did a series of intermittent screwing in of the lead into the septum with monitoring, the QRS progression in V1 as well as the stim to QRS peak in V6, and impedance drops periodically. Then I also gave some contrast through the sheath to see how far was up against the septum and how it all looked, when I was finally satisfied with how deep I was in the numbers in the electrograms, the His sheath was then slid under fluoroscopic guidance. I then unscrewed the right atrial lead that was actually in the right ventricular apex for backup and placed that the right atrial appendage under fluoroscopic guidance. There was adequate pacing and sensing thresholds and no diaphragmatic stimulation with high output pacing. The 7-H[place] Konger sheath was peeled away and lead was fixated to pectoralis muscle using 0 silk suture. Then, the 8-[place]er sheath over the left bundle lead was slit and the lead was fixated to pectoralis muscle using 0 silk suture. The pacemaker pocket was created using blunt dissection over the pectoralis muscle within the pectoral fascia. Pocket was flushed with copious amounts of bacitracin saline wash and inspected for hemostasis. Pulse generator was then placed in the Tyrx pouch followed then by being placed in the pocket, making sure the leads were lying flat beneath the device. A stay stitch using 0 silk suture was used to secure the device to pectoralis muscle. The incision was then closed in a 3-layer fashion with 2-0 Vicryl interrupted suture followed by 3-0 Vicryl interrupted suture, followed by 4-0 Monocryl running stitch and Dermabond was applied followed by a Telfa and micropore dressing. EQUIPMENT: 1. Pulse generator is a [employer] Vale XT DR ADIS Selby [id number], serial number [id number]. 2. Tyrx pouch is reference [id number], lot #[id number], expiration 03/06/2021. 3. Right atrial lead Medtronic 5076-52 cm, serial #[id number]. 4. Right ventricular lead, Medtronic 3830-69 cm, serial # [id number]. INTRAOPERATIVE TESTIN. Right atrial lead: P waves 1.6 millivolts, impedance 456 ohms, threshold 0.5 volts at 0.4 milliseconds. 2. Left bundle lead: R waves 25.2 millivolts, impedance 789 ohms, threshold 0.5 volts at 0.4 milliseconds. FINAL PARAMETERS THROUGH THE DEVICE: 1. Right atrial lead: P waves 1.5 millivolts, impedance 475 ohms, threshold 0.5 volts at 0.4 milliseconds. 2. Left bundle lead: R waves greater than 20 millivolts, impedance 836 ohms, threshold 0.5 volts at 0.4 milliseconds. FINAL PARAMETERS: MVP-R 60/130, right atrial amplitude 3.5 volts, pulse width 0.4 milliseconds, sensitivity 0.3 millivolts. Right ventricular amplitude 3.5 volts, pulse width 0.4 milliseconds, sensitivity 1.2 millivolts. CONCLUSION: Successful implantation of a dual chamber rate responsive where the right ventricular lead is positioned over the left bundle permanent pacemaker under fluoroscopic guidance along with intracardiac electrogram his mapping secondary to tachybrady syndrome. PLAN: Monitor patient overnight, 12-lead ECG, chest x-ray. She is not allowed to lift left elbow or left shoulder for 1 month. She cannot lift more than 10 pounds with the left arm for 2 weeks. She is to keep the dressing on and dry until her wound check next week and would change her atenolol to metoprolol. Of note, since the postop day 1, chest x-ray did show pneumothorax and she ended up with a chest tube placed by pulmonary even though she remained asymptomatic. I attest to the content of the Intraoperative Record and any orders documented therein. Any exceptions are noted below. MTDD
== END 2020-06-13 13:18 | disposition home or self-care (01) | DRG 243 ==
LOC: 2S 13:47 → EP 13:47